=== PATIENT | female | born 1945 | race Caucasian/White ===

== ENCOUNTER 2016-10-06 13:09 | Outpatient (CLI) | payer MEDICARE | END 2016-10-06 13:10 | disposition home or self-care (01) | DX: Z12.31 Encounter for screening mammogram for malignant neoplasm of breast (principal); Z85.3 Personal history of malignant neoplasm of breast; Z80.3 Family history of malignant neoplasm of breast ==

== ENCOUNTER 2017-01-04 15:11 | Outpatient (CLI) | payer MEDICARE ==
--- NOTE | 2017-01-05 09:51 | XRAY Report ---
RIGHT HIP AND PELVIS: 01/04/2017 CLINICAL INDICATION: Right hip pain. FINDINGS: Frontal view of the hips and pelvis and frogleg lateral view of the right hip demonstrate no evidence of fracture or dislocation. The joint spaces demonstrate mild osteoarthritic changes. No radiopaque foreign body is seen in the soft tissues. IMPRESSION: MILD OSTEOARTHRITIS. JOB #: [id number] EXT JOB #:[id number]
== END 2017-01-04 15:12 | disposition home or self-care (01) ==
LOC: DI.S 15:11
PROVIDERS: ATTEND Nurse Practitioner Family
DX: M16.11 Unilateral primary osteoarthritis, right hip (principal)

== ENCOUNTER 2017-11-13 08:27 | Outpatient (CLI) | payer MEDICARE ==
--- NOTE | 2017-11-13 10:19 | XRAY Report ---
TWO VIEW CHEST: 11/13/2017 CLINICAL INDICATION: Basilar crackles, dyspnea. FINDINGS: Frontal and lateral views of the chest demonstrate a normal cardiac silhouette. A moderate hiatal hernia is present. Calcified granulomas are incidentally noted. No focal consolidation, effusion, or pneumothorax is present. IMPRESSION: MODERATE HIATAL HERNIA. 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 NO EVIDENCE OF ACUTE CARDIOPULMONARY DISEASE. TD: 11/13/2017 10:18
--- NOTE | 2017-11-13 12:27 | MRI Report ---
EXAM: RIGHT HIP MRI WITHOUT CONTRAST EXAM DATE: 11/13/2017 09:15 AM. CLINICAL HISTORY: Right hip pain x 1 year worse with activity, night pain. COMPARISON: Radiographs 01/04/2017. TECHNIQUE: Multiplanar, multisequence T1-weighted and fluid-sensitive, small yjgqs-hi-qevc sequences of the hip and large grwtt-zl-mlrl sequences of the pelvis without contrast. Other: None. FINDINGS: Bones: No fracture or bone lesion. Bone marrow edema partially visualized in the lower lumbar facets. Right Hip: No acetabular retroversion. Minimally decreased offset at the anterolateral aspect femoral head and neck junction where there are subtle osteophytes. No effusion or loose bodies. Ligamentum t eres is intact. Diffuse deep partial thickness cartilage loss. Deep partial to full-thickness tear at the anterior lozano perior labrum. Possible subtle partial-thickness undersurface tear lateral aspect of the labrum. Other Joints: Mild to moderate degenerative disk and moderate to severe degenerative facet changes pa rtially visualized. Minimal bilateral sacroiliac degenerative change. Pubic symphysis is unremarkable. No joint effusion of the left hip. Musculature: Minimal fatty atrophy throughout the musculature. Mild bilateral gluteus minimus and med ius tendinopathy with trace fluid in bilateral greater trochanteric bursae, right greater than left. Sequelae of mild bilateral hamstring tendinopathy, chronic. The ischiofemoral space is normal. Pelvic Cavity: Sigmoid diverticula. No lymphadenopathy. No free fluid in the pelvis. Other: The visualized sciatic nerves are unremarkable. Minimal subcutaneous edema over the posterior aspect of the sacrum, nonspecific. IMPRESSION: 1. Minimal degenerative change right hip with deep partial to full-thickness tear at the anterior sup erior labrum and possible partial-thickness undersurface tear of the lateral aspect of the labrum. 2. Mild bilateral gluteus minimus and medius tendinopathy with trace greater trochanteric bursitis, r ight greater than left. 3. Sequelae of mild hamstring tendinopathy. 4. Minimal bilateral sacroiliac degenerative change. 5. Degenerative changes partially visualized in the lower lumbar spine. [facility] MUSCULOSKELETAL RADIOLOGY SECTION Referring Provider Line: [phone] SITE ID: [id number]
== END 2017-11-13 08:28 | disposition home or self-care (01) ==
LOC: DI 08:27
PROVIDERS: ATTEND Registered Nurse
DX: R09.89 Other specified symptoms and signs involving the circulatory and respiratory systems (principal); R06.00 Dyspnea, unspecified; K44.9 Diaphragmatic hernia without obstruction or gangrene; M16.11 Unilateral primary osteoarthritis, right hip; S73.191A Other sprain of right hip, initial encounter; M70.62 Trochanteric bursitis, left hip; M70.61 Trochanteric bursitis, right hip; M47.898 Other spondylosis, sacral and sacrococcygeal region; M47.896 Other spondylosis, lumbar region; M51.36 Other intervertebral disc degeneration, lumbar region; M67.853 Other specified disorders of tendon, right hip; M67.852 Other specified disorders of synovium, left hip
CPT/HCPCS: 71046

== ENCOUNTER 2017-11-13 08:29 | Outpatient (CLI) | payer MEDICARE ==
--- NOTE | 2017-11-14 18:13 | Mammography Report ---
DIGITAL SCREENING MAMMOGRAM: 11/13/2017 CLINICAL INDICATION: A 72-year-old with a personal history of left breast cancer, status post lumpectomy and chemoradiation, family history of breast cancer, nulliparous patient for screening. COMPARISON: 09/2016, 08/2015, 01/2014, 01/2013, 10/2010. TECHNIQUE: Routine CC and MLO projections were obtained of the breasts. FINDINGS: The breasts again demonstrate scattered fibroglandular densities bilaterally. Coarse, typically benign calcifications are present. Postoperative and posttreatment changes in the left breast are stable. No suspicious masses, clustered microcalcifications, or regions of architectural distortion are identified. IMPRESSION: BENIGN FINDINGS. RECOMMENDATION: Routine annual screening unless otherwise clinically indicated. BIRADS category 2 benign findings. STANDARD QUALIFYING STATEMENTS 1. This examination was reviewed with the aid of Computed-Aided Detection (CAD). 2. A negative or benign imaging report should not delay biopsy if clinically suspicious findings are present. Consider surgical consultation if warranted. More than 5% of cancers are not identified by imaging. 3. Dense breasts may obscure an underlying neoplasm. TD: 11/14/2017 18:12
== END 2017-11-13 08:30 | disposition home or self-care (01) ==
LOC: DI 08:29
PROVIDERS: ATTEND Registered Nurse
DX: Z12.31 Encounter for screening mammogram for malignant neoplasm of breast (principal); Z85.3 Personal history of malignant neoplasm of breast; Z80.3 Family history of malignant neoplasm of breast
CPT/HCPCS: 77067

== ENCOUNTER 2017-12-21 10:24 | Outpatient (CLI) | payer MEDICARE ==
[2017-12-21] MEDS ORDERED: REGADENOSON 0.4 MG/5 ML SYRINGE IVP ONE (10:59)
--- NOTE | 2017-12-21 16:34 | Nuclear Medicine Report ---
EXAM: SINGLE-ISOTOPE EXERCISE STRESS TEST. SINGLE-ISOTOPE AND ONE-DAY REST/STRESS MYOCARDIAL PERFUSION SCAN S WITH TOMOGRAPHIC IMAGING, QUANTITATIVE ANALYSIS, WALL MOTION ANALYSIS AND CALCULATION OF EJECTION F RACTION. EXAM DATE: 12/21/2017. CLINICAL HISTORY: Dyspnea with exertion COMPARISON: None available. TECHNIQUE: A rest myocardial perfusion scan was done with tomography after the intravenous administration of 9.5 mCi Tc-99m sestamibi. After an appropriate delay, a treadmill exercise stress was performed according to department jaretho l. The patient exercised for 5 minutes and 10 seconds. The maximum heart rate was 132 bpm, which was 89% of the maximum predicted heart rate of 148 bpm. At approximately peak heart rate, 38.7 mCi of Tc- 99m sestamibi was injected for stress myocardial perfusion scan. Motion correction was applied when a ppropriate. Gated tomographic images were obtained for wall motion analysis and computation of left ventricular e jection fraction. FINDINGS: There is a small, fixed defect in the anterior apex. No convincing reversible perfusion def ects are evident. Wall motion analysis demonstrates no focal wall motion abnormality The left ventricular end-diastolic volume is 50 cc. The left ventricular end-systolic volume is 4 cc. The left ventricular ejection fraction is calculated to be 91%. IMPRESSION: 1. Small fixed perfusion defect in the anterior apex versus apical thinning. No convincing reversible perfusion defects. 2. Normal left ventricular ejection fraction of >65%. 3. Normal segmental and global wall motion. 4. Normal left ventricular cavity size, no change with stress. [facility] Referring Provider Line: [phone] SITE ID: [id number]
[2017-12-21 17:04] VITALS: BP 116/80
--- NOTE | 2017-12-22 13:50 | CARDIAC PROCEDURE NOTE ---
DATE OF SERVICE: 12/21/2017 Physician: MANGO Herman PRIMARY CARE PROVIDER: MANGO De Jesus. PROCEDURE: Myocardial perfusion treadmill. PROCEDURE SYMPTOMS: Dyspnea on exertion. CARDIAC RISK FACTORS INCLUDE: Age and family history. PREVIOUS CARDIAC PROCEDURES: None. CURRENT SYMPTOMATOLOGY: None. CLINICAL HISTORY: A 72-year-old female without known coronary artery disease. INITIAL RESTING VITAL SIGNS: BP 116/80, heart rate 85, height 64 inches, weight 210 pounds, BMI 35.49. PROCEDURE AND FINDINGS: Patient identity and date verified, consent signed. The patient performed treadmill exercise using a Jan protocol, completing 5 minutes 10 seconds, and completing an estimated workload of 7.05 metabolic equivalents. At peak exercise, Cardiolite radioactive tracer was injected intravenously, and the patient exercised a full 1 minute before stopping. Maximal blood pressure was 124/70 with a heart rate of 132 beats per minute or 89% of maximum predicted heart rate for age. The blood pressure response to exercise was somewhat flat. The patient stopped because of breathlessness. At peak exercise, the resting ECG demonstrated normal sinus rhythm with no abnormalities. Maximal ST-segment depression was less than 0.5 mm and upsloping. There was no ectopy. FINAL IMPRESSION 1. Good quality test. 2. Achieved predicted exercise time of (minutes) 4'30"-5'40". 3. Negative stress electrocardiogram for ischemia by electrocardiographic criteria. 4. Negative stress test clinically for angina. 5. No ectopy nor arrhythmia. TD: 12/21/2017 18:02 [facility]
== END 2017-12-21 10:25 | disposition home or self-care (01) ==
LOC: DI 10:24
PROVIDERS: ATTEND Registered Nurse
DX: R06.00 Dyspnea, unspecified (principal); G47.30 Sleep apnea, unspecified
CPT/HCPCS: 78452; 93017; A9500; 93016; 93018

== ENCOUNTER 2019-02-21 12:52 | Outpatient (CLI) | payer MEDICARE ==
--- NOTE | 2019-02-22 10:28 | Mammography Report ---
Reason: ENCOUNTER FOR SCREENING MAMMOGRAM FOR MALIGNANT NE Procedure Date: 02/21/2019 Accession Number: [id number] / [id number] Procedure: BG - Screening Mammo w/Seamus CPT Code: FULL RESULT: EXAM: Screening Mammo w/Seamus DATE: 02/21/2019 2:02 PM CLINICAL HISTORY: Screening encounter. History of nulliparity. Personal history of breast cancer status post left breast lumpectomy in 1993. Family history of breast cancer in the mother at the age of 91. TECHNIQUE: (B) - Bilateral CC and MLO views were obtained. A right laterally exaggerated CC views obtained. COMPARISON: 11/13/2017 through 01/29/2013. PARENCHYMAL PATTERN: (A) - The breast(s) demonstrate(s) scattered fibroglandular densities. FINDINGS: Posttreatment changes in the left breast are stable. There are coarse typically benign calcifications. There are no suspicious masses, calcifications, or areas of distortion. IMPRESSION: Benign findings. BI-RADS category 2. RECOMMENDATION: (ANNUAL) - Recommend routine annual screening mammography. BI-RADS CATEGORY: (2) - Benign Findings. STANDARD QUALIFYING STATEMENTS: 1. This examination was not reviewed with the aid of Computer-Aided Detection (CAD). 2. A negative or benign imaging report should not preclude biopsy if clinically suspicious findings are present. 3. Dense breasts may obscure an underlying neoplasm. 4. This examination was reviewed with the aid of 3D breast imaging (tomosynthesis).
== END 2019-02-21 12:53 | disposition home or self-care (01) ==
LOC: DI 12:52
PROVIDERS: ATTEND Registered Nurse
DX: Z12.31 Encounter for screening mammogram for malignant neoplasm of breast (principal); Z80.3 Family history of malignant neoplasm of breast; Z85.3 Personal history of malignant neoplasm of breast
CPT/HCPCS: 77063; 77067

== ENCOUNTER 2019-02-21 12:55 | Outpatient (CLI) | payer MEDICARE ==
--- NOTE | 2019-02-21 15:05 | XRAY Report ---
Reason: OSTEOARTHRITIS OF KNEE,BILATERAL,PAIN IN BOTH FEET Procedure Date: 02/21/2019 Accession Number: [id number] / [id number] Procedure: XR - Foot 3 View BILAT CPT Code: FULL RESULT: EXAMS: 1. RIGHT FOOT RADIOGRAPHY 2. LEFT FOOT RADIOGRAPHY EXAM DATE: 02/21/2019 02:21 PM. CLINICAL HISTORY: Osteoarthritis of knee, bilateral, pain in both feet. COMPARISON: None. TECHNIQUE: 3 views each foot. FINDINGS: Right: Bones: Mild inferior calcaneal spurring. The bones are qualitatively osteopenic; this limits evaluation for underlying fractures or masses. No fracture is seen. Joints: Mild degenerative changes are seen in the first metatarsophalangeal articulation. No subluxation. Soft Tissues: Normal. No soft tissue swelling. Left: Bones: The bones are qualitatively osteopenic; this limits evaluation for underlying fractures or masses. Mild to moderate inferior calcaneal spurring. No fracture is detected. Joints: Moderate degenerative changes are seen at the first metatarsophalangeal articulation with subchondral cyst formation. No subluxation. Soft Tissues: Normal. No soft tissue swelling. IMPRESSION: Osteopenia and degenerative changes as described. [facility]
--- NOTE | 2019-02-21 15:10 | XRAY Report ---
Reason: OSTEOARTHRITIS OF KNEE,BILATERAL,PAIN IN BOTH FEET Procedure Date: 02/21/2019 Accession Number: [id number] / [id number] Procedure: XR - Knee 3 View BILAT CPT Code: FULL RESULT: EXAMS: 1. RIGHT KNEE RADIOGRAPHY 2. LEFT KNEE RADIOGRAPHY EXAM DATE:02/21/2019 02:21 PM. CLINICAL HISTORY:Osteoarthritis of knee, bilateral pain in both feet. COMPARISON: None. TECHNIQUE: 3 views each. FINDINGS: Right Knee: Bones: Normal. No fractures or bone lesions. Joints: Mild narrowing of the medial weightbearing compartment. No joint effusion or subluxation detected. Soft Tissues: Normal. No soft tissue swelling. Left Knee: Bones: Normal. No fractures or bone lesions. Joints: Mild narrowing of the medial weightbearing compartment as well as degenerative changes along the medial patellar facet and a minimal joint effusion. No subluxation. Soft Tissues: Normal. No soft tissue swelling. IMPRESSION: Degenerative changes left greater than right as described. [facility]
--- NOTE | 2019-02-22 09:09 | DEXA Report ---
Reason: DISORDER OF BONE,UNSPECIFIED Procedure Date: 02/21/2019 Accession Number: [id number] / [id number] Procedure: DEX - Dexa Spine and/or Hip CPT Code: FULL RESULT: EXAM: Dexa Spine and/or Hip DATE: 02/21/2019 2:04 PM CLINICAL HISTORY: DISORDER OF BONE,UNSPECIFIED TECHNIQUE: Dual energy x-ray absorptiometry (DXA) was performed on a [employer] System. Regions measured are the AP Spine, femoral neck, and if needed forearm. COMPARISON: None. In accordance with the International Society for Clinical Densitometry (ISCD) guidelines, data from previous exams may be reanalyzed using current recommendations and techniques. This is done to allow a more accurate basis for comparison with the current study. FINDINGS: The data for the lumbar spine is as follows: BMD (g/cm/cm) T-SCORE Z-SCORE REGION L1 0.632 -4.2 -3.4 L2 0.970 -1.9 -1.2 L3 0.927 -2.3 -1.5 L4 0.987 -1.8 -1.0 TOTAL 0.873 -2.6 -1.8 NOTE: All evaluable vertebrae are used for classification The data for the hip is as follows: BMD (g/cm/cm) T-SCORE Z-SCORE REGION Neck 0.707 -2.4 -1.2 TOTAL 0.762 -2.0 -1.0 NOTE: The femoral neck or total proximal femur, whichever is lowest, is used for classification. DXA RESULTS SUMMARY: Spine SCAN DATE AGE BMD CHANGE VS CHANGE VS PREVIOUS PREVIOUS % 2/21/2019 [age] 0.873 -0.062* -6.6* 02[age]17/2016 [age] 0[age]935 * Denotes significant change at the 95% confidence level. Denotes dissimilar scan types or analysis methods. DXA RESULTS SUMMARY: Hip SCAN DATE AGE BMD CHANGE VS CHANGE VS PREVIOUS PREVIOUS % 2/21/2019 [age] 0.762 0.018 2.4 02[birth year]17/2016 [age] 0.744 * Denotes significant change at the 95% confidence level. Denotes dissimilar scan types or analysis methods. IMPRESSION: THE WHO CLASSIFICATION BASED ON THE INTERNATIONAL REFERENCE STANDARD IS OSTEOPOROSIS. THE FRACTURE RISK IS HIGH. RECOMMENDATION: Patients with diagnosis of osteoporosis or osteopenia should have regular bone mineral density assessment. For those eligible for Medicare, routine testing is allowed once every 2 years. Testing frequency can be increased for patients who have rapidly progressing disease or for those who are receiving medical therapy to restore bone mass. COMMENT: World Health Organization (WHO) definitions for osteoporosis and osteopenia: NORMAL BMD: T-score at -1.0 or higher, fracture risk is low OSTEOPENIA BMD: T-score between -1.0 and -2.5, fracture risk is increased. OSTEOPOROSIS BMD: T-score at -2.5 or lower, fracture risk is high. National Osteoporosis Foundation recommends: 1. Obtain adequate dietary calcium (at least 1200 mg per day) and vitamin D (400-800 international units per day). 2. Participate, as appropriate, in regular weightbearing and muscle-strengthening exercise. 3. Avoid tobacco use and reduce alcohol and caffeine intake. 4. For more detailed information see the website at www.NOF.org.
== END 2019-02-21 12:56 | disposition home or self-care (01) ==
LOC: DI 12:55
PROVIDERS: ATTEND Registered Nurse
DX: M81.0 Age-related osteoporosis without current pathological fracture (principal); M17.0 Bilateral primary osteoarthritis of knee; M79.671 Pain in right foot; M79.672 Pain in left foot
CPT/HCPCS: 77080

== ENCOUNTER 2019-09-02 11:59 | Outpatient (CLI) | payer MEDICARE ==
--- NOTE | 2019-09-02 17:48 | MRI Report ---
Reason: OSTEOARTHRITIS OF KNEE Procedure Date: 09/02/2019 Accession Number: [id number] / [id number] Procedure: MRI - Knee LT W/O CPT Code: Final Report FULL RESULT: EXAM: LEFT KNEE MRI WITHOUT CONTRAST EXAM DATE: 09/02/2019 01:48 PM. CLINICAL HISTORY: Osteoarthritis of knee. COMPARISON: None. TECHNIQUE: Multiplanar, multisequence T1-weighted and fluid-sensitive sequences of the knee without contrast. Other: None. FINDINGS: Bones: Significant subjacent marrow edema at the patella. Some marrow edema also seen at the medial trochlear groove. 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 Medial Meniscus: The medial meniscus is intact. Lateral Meniscus: The lateral meniscus is intact. Cruciate Ligaments: The anterior and posterior cruciate ligaments are intact. Collateral Ligaments: The medial collateral and lateral collateral ligamentous structures are intact. Tendons: The quadriceps, patellar, semimembranosus, and popliteus tendons are unremarkable. Musculature: No edema or fatty atrophy. Other: Small joint effusion.No popliteal cyst.No loose bodies.The medial and lateral retinacula are intact.Subcutaneous edema and swelling is seen anteriorly. IMPRESSION: 1. 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 2. Menisci, cruciates and collaterals are unremarkable. 3. Small joint effusion. Subcutaneous edema and swelling is present anteriorly. [facility]
== END 2019-09-02 12:00 | disposition home or self-care (01) ==
LOC: DI 11:59
PROVIDERS: ATTEND Registered Nurse
DX: M94.262 Chondromalacia, left knee (principal); M25.462 Effusion, left knee; R60.0 Localized edema

== ENCOUNTER 2020-04-20 09:39 | Outpatient (CLI) | payer MEDICARE ==
--- NOTE | 2020-04-21 09:26 | Mammography Report ---
BILATERAL DIGITAL SCREENING MAMMOGRAM 3D/2D: 04/20/2020 CLINICAL: Routine screening. Personal history of left breast cancer. Comparison is made to exams dated: 11/13/2017 mammogram, 02/21/2019 mammogram, 10/06/2016 mammogram, 08/28 mammogram, 01/29/2014 mammogram, and 01/29/2013 mammogram - [facility]. There a re scattered fibroglandular elements in both breasts. There are benign calcifications in both breasts. There also are benign post operative findings in th e left breast. No significant masses, calcifications, or other findings are seen in either breast. There has been no significant interval change. IMPRESSION: BENIGN There is no mammographic evidence of malignancy. A 1 year screening mammogram is recommended. This exam was interpreted at Station ID: [id number]. NOTE: For mammograms, a report in lay terms will be sent to the patient. Approximately 15% of breast malignancies will not be visualized mammographically. In the management of a palpable breast mass, a negative mammogram must not discourage biopsy of a clinically suspicious lesion. Electronically Signed By: Luiz Pandya M.D. atcesar/henryrad:04/21/2020 07:55:53 ACR BI-RADS Category 2: Benign Finding(s) 3342F PARENCHYMAL PATTERN: (A) - The breast(s) demonstrate(s) scattered fibroglandular densities. BI-RADS CATEGORY: (2) - 2 RECOMMENDATION: (ANNUAL) - Recommend routine annual screening mammography. [id number] 1 year screening LATERALITY: (B)
== END 2020-04-20 09:40 | disposition home or self-care (01) ==
LOC: DI 09:39
PROVIDERS: ATTEND Registered Nurse
DX: Z12.31 Encounter for screening mammogram for malignant neoplasm of breast (principal); Z85.3 Personal history of malignant neoplasm of breast
CPT/HCPCS: 77063; 77067

== ENCOUNTER 2020-08-07 10:25 | Outpatient (CLI) | payer MEDICARE ==
--- NOTE | 2020-08-07 12:53 | XRAY Report ---
PROCEDURE: Lumbar Spine 2 View INDICATIONS: LOW BACK STRAIN TECHNIQUE: 2 views of the lumbar spine were acquired. COMPARISON: None. FINDINGS: Bones: 5 kwv-dfu-ggjtsqt vertebrae are present. Trace anterolisthesis L5 on S1 with mild disc height loss. Moderate disc height loss at the L3-4 level. Mild endplate osteophytes at multiple levels. Fa cet arthropathy at L4-5 and L5-S1. No vertebral body compression fractures. No suspicious bony lesio ns. Decreased mineralization. Soft tissues: Overlying bowel gas pattern is normal. No suspicious soft tissue calcifications. IMPRESSION: Mild multilevel degenerative changes as described. Reviewed by: Cary Martínez MD on 08/07/2020 12:52 PM PST Approved by: Cary Martínez MD on 08/07/2020 12:52 PM PST Station ID: [id number]
== END 2020-08-07 10:26 | disposition home or self-care (01) ==
LOC: DI.S 10:25
PROVIDERS: ATTEND Registered Nurse
DX: S39.012A Strain of muscle, fascia and tendon of lower back, initial encounter (principal); M81.0 Age-related osteoporosis without current pathological fracture; M47.816 Spondylosis without myelopathy or radiculopathy, lumbar region

== ENCOUNTER 2020-12-01 09:11 | Outpatient (CLI) | payer MEDICARE ==
--- NOTE | 2020-12-02 09:54 | Mammography Report ---
UNILATERAL LEFT DIGITAL DIAGNOSTIC MAMMOGRAM 3D/2D: 12/01/2020 CLINICAL: Palpable left breast lump by physician. Comparison is made to exams dated: 04/20/2020 mammogram, 02/21/2019 mammogram, 11/13/2017 mammogram, 10/06/2016 mammogram, and 09/15/2015 mammogram - [facility]. There are scattered fibrog landular elements in left breast. There are benign segmental coarse heterogeneous punctate calcifications in the left breast at 7 o'lazaro ck anterior depth. There also is an irregular equal density architectural distortion with an indistinct margin and group ed dystrophic calcifications in the left breast at 1 o'clock posterior depth. This is not significan tly changed and correlates with surgery. There is a post-surgical scar and trabecular thickening ass ociated with the architectural distortion. No other significant masses or calcifications are seen in the breast. IMPRESSION: INCOMPLETE: NEEDS ADDITIONAL IMAGING EVALUATION The irregular equal density architectural distortion in the left breast at 1 o'clock posterior depth is consistent with a post-surgical scar and is benign. There is no abnormality seen in the left breast to correspond with the palpable abnormality in the up per outer quadrant, however, ultrasound is recommended. Ultrasound will be performed immediately following the current exam. This exam was interpreted at Station ID: [id number]. NOTE: For mammograms, a report in lay terms will be sent to the patient. Approximately 15% of breast malignancies will not be visualized mammographically. In the management of a palpable breast mass, a negative mammogram must not discourage biopsy of a clinically suspicious lesion. Electronically Signed By: Ankur Marie M.D. ddp/:12/01/2020 10:15:47 ACR BI-RADS Category 0: Incomplete 3340F PARENCHYMAL PATTERN: (A) - The breast(s) demonstrate(s) scattered fibroglandular densities. BI-RADS CATEGORY: (0) - 0 Ultrasound [id number] Immediate follow-up LATERALITY: (B)
--- NOTE | 2020-12-02 09:54 | Ultrasound Report ---
LIMITED ULTRASOUND OF LEFT BREAST: 12/01/2020 CLINICAL: Palpable left breast lump by physician. Comparison is made to exams dated: 12/01/2020 mammogram, 04/20/2020 mammogram, 02/21/2019 mammogram, 10/26 mammogram, 10/06/2016 mammogram, and 09/15/2015 mammogram - [facility]. Real-time ultrasound of the left breast 1 o'clock region was performed on the area of interest. No discrete cystic or solid mass lesion identified in the area of palpable abnormality. IMPRESSION: NEGATIVE There is no sonographic evidence of malignancy. There is no abnormality seen in the left breast to correspond with the palpable abnormality at 1 o'cl ock, however, clinical followup is recommended. Future imaging is recommended as follows: 04/21/2021 screening mammogram. This exam was interpreted at Station ID: [id number]. Electronically Signed By: Ankur Marie M.D. ddp/:12/01/2020 10:30:51 Ultrasound BI-RADS: 1 Negative BI-RADS CATEGORY: (1) - 1 Mammogram [id number] return to screening LATERALITY: (B)
== END 2020-12-01 09:12 | disposition home or self-care (01) ==
LOC: DI 09:11
PROVIDERS: ATTEND Registered Nurse
DX: N63.21 Unspecified lump in the left breast, upper outer quadrant (principal)

== ENCOUNTER 2021-02-17 09:37 | Outpatient (CLI) | payer MEDICARE ==
--- NOTE | 2021-02-18 14:22 | Ultrasound Report ---
LIMITED ULTRASOUND OF LEFT BREAST: 02/17/2021 CLINICAL: Patient returns today to evaluate a focal asymmetry in the left breast. Palpable left breas t lump by physician. Comparison is made to exams dated: 02/17/2021 mammogram - [facility], 01/27/[address] MRI, 01/20/2021 mammogram - [facility], 12/01/2020 ultrasound, 12/01/2020 mammogram, and 04/20/2020 mammogram - [facility]. Real-time ultrasound of the left breast 2-4 o'clock, and retroareolar regions was performed. Leyva s marcelina images of the real-time examination were reviewed. No significant abnormalities were seen sonographically in the left breast. Specifically, no abnormal ities correlating with resolved focal asymmetry in the lateral left breast. Additionally, no retroare olar abnormalities to correlate with suspicious linear enhancement seen on recent MRI. This area of e nhancement correlates with same segment of the left breast as the stable calcifications seen mammogra phically. Retrospective review of the MRI showed likely intrinsically T1 hyperintensity along the anne-marie e region of the subareaolar left breast prior to administration of contrast which may be related to p roteinaceous versus hemorrhagic components within a non dilated duct. There is no ductal dilation or ectasia in the left breast. IMPRESSION: PROBABLY BENIGN There is no abnormality seen in the left breast to correspond with the mammography finding and breast MRI finding. The suspicious short segment of linear enhancement seen in the left breast correlates with subareolar left breast anterior to segmental calcifications seen on multiple comparison mammogra ms. This is a probably benign finding. A follow-up breast MRI in 6 months is recommended to demonstrate stability. Findings and recommendations were conveyed to the patient during today's evaluation. This exam was interpreted at Station ID: [id number]. Electronically Signed By: Luiz Pandya M.D. aty/:02/17/2021 11:47:01 copy to: LENNY MCNAMARA Ultrasound BI-RADS: 3 Probably benign BI-RADS CATEGORY: (3) - 3 MRI [id number] 6 month follow-up LATERALITY: (B)
--- NOTE | 2021-02-18 14:22 | Mammography Report ---
UNILATERAL LEFT DIGITAL DIAGNOSTIC MAMMOGRAM 3D/2D: 02/17/2021 CLINICAL: Patient returns today to evaluate a focal asymmetry in the left breast. Comparison is made to exams dated: 01/20/2021 mammogram - [facility], 12/01/2020 ultrasound, 021 mammogram, 04/20/2020 mammogram, 02/21/2019 mammogram, and 11/13/2017 mammogram - [facility]. There are scattered fibroglandular elements in left breast. The previously described possible developing asymmetry in the left breast at 12 o'clock middle depth is no longer seen and most likely is fibroglandular tissue as this was not seen in today's additional views and there were no correlate seen on comparison MRI dated 01/27/2021. No mammographic abnormalities identified in the retroareolar region of the inner left breast to corre late with linear enhancement seen on comparison MRI. There are stable coarse segmental left breast ca lcifications in this area. No other significant masses or calcifications are seen in the breast. IMPRESSION: INCOMPLETE: NEEDS ADDITIONAL IMAGING EVALUATION There is no abnormality seen in the left breast to correspond with the breast MRI finding in the sub- areolar depth as well as the lateral aspect of the left breast of now resolved asymmetry. However, f urther evaluation with left breast ultrasound is recommended and will immediately follow this exam. This exam was interpreted at Station ID: [id number]. NOTE: For mammograms, a report in lay terms will be sent to the patient. Approximately 15% of breast malignancies will not be visualized mammographically. In the management of a palpable breast mass, a negative mammogram must not discourage biopsy of a clinically suspicious lesion. Electronically Signed By: Luiz Pandya M.D. aty/:02/17/2021 11:14:33 copy to: LENNY MCNAMARA ACR BI-RADS Category 0: Incomplete 3340F PARENCHYMAL PATTERN: (A) - The breast(s) demonstrate(s) scattered fibroglandular densities. BI-RADS CATEGORY: (0) - 0 Ultrasound [id number] Immediate follow-up LATERALITY: (L)
== END 2021-02-17 09:38 | disposition home or self-care (01) ==
LOC: DI 09:37
PROVIDERS: ATTEND Surgery
DX: R92.8 Other abnormal and inconclusive findings on diagnostic imaging of breast (principal)

== ENCOUNTER 2021-10-08 08:00 | Outpatient (CLI) | payer MEDICARE ==
--- NOTE | 2021-10-08 14:02 | XRAY Report ---
PROCEDURE: Knee 2 View LT INDICATIONS: LEFT KNEE PAIN TECHNIQUE: 2 views of the left knee(s) were acquired. COMPARISON: None. FINDINGS: Bones: No fractures or dislocations. No suspicious bony lesions. Mild tricompartment periareolar a rticular osteophyte formation. Soft tissues: No joint effusion. No suspicious soft tissue calcifications. IMPRESSION: Osteoarthritis. No acute fracture. No osseous lesion. If symptoms and/or clinical suspic ion for pathology continue, further assessment with repeat plain films, or advanced imaging (e.g., CT , MRI, or bone scan) is recommended for further assessment. Reviewed by: Luzmaria Cotter MD on 10/08/2021 2:00 PM PST Approved by: Luzmaria Cotter MD on 10/08/2021 2:00 PM PST Station ID: [id number]
== END 2021-10-08 23:59 | disposition home or self-care (01) ==
LOC: DI.S 08:00
PROVIDERS: ATTEND Registered Nurse
DX: M17.12 Unilateral primary osteoarthritis, left knee (principal)

== ENCOUNTER 2021-11-11 09:41 | Day surgery (SDC) | payer MEDICARE ==
--- NOTE | 2021-11-11 09:21 | OPERATIVE REPORT ---
Operative Report - Other Other Information/Narrative: Date of Surgery: 11/11/21 Preop Dx: Visually significant cataract right eye. Cataract surgery was performed in the left eye on . Postop Dx: Same Procedure: Phacoemulsification with posterior chamber intraocular lens implant right eye Surgeon: Dr. Casey Pearson Anesthesia: Monitored anesthesia care Complications: None Operative Indications: This is a 76-year-old F with progressive vision loss in the right eye due to 2+ nuclear sclerotic, 1+ cortical, and 2+ posterior subcapsular cataract. Best corrected visual acuity was 20/100 vision in the right eye. Indications for surgery were: - Overall decrease in vision - Difficulty seeing words on a computer screen - Difficulty reading - Difficulty seeing words, closed captions, or game scores on TV - Difficulty seeing street signs - Difficulty with glare or bright lights in any situation - Difficulty tracking a golf ball The patient was consented at length concerning the risks and benefits of cataract surgery after which the patient expressed a desire to proceed with surgery. Operative Procedure: The patient was taken into OR#3 and placed under monitored anesthesia care. A surgical time-out was conducted confirming correct patient, correct procedure, and correct surgical site. The patient was given topical anesthesia and then prepped and draped in the usual sterile fashion. The eye was entered at the 6 and 3 oclock positions. Intracameral Shugarcaine was injected into the anterior chamber followed by a dispersive viscoelastic. A continuous-tear curvilinear capsulorhexis was performed. The nucleus was hydrodissected and phacoemulsified. The cortex was evacuated using automated infusion and aspiration. A cohesive viscoelastic was injected into the capsular bag and a 19.5 diopter intraocular lens was inserted into the bag. Infusion and aspiration were used to evacuate the viscoelastic materials from the eye. The wounds were hydrated and the eye inflated to physiologic pressure using balanced salt solution. Approximately 0.25ml of a mixture of triamcinolone and moxifloxacin was injected trans-sclerally into the vitreous in the inferotemporal quadrant using a 30 gauge cannula. An additional 0.55ml of a mixture of triamcinolone, moxifloxacin, and vancomycin was injected sub conjunctivally in the superior quadrant for infection and inflammation prophylaxis. Wound integrity was checked with Weck-Lana sponges. The patient was taken from the operating room in good condition and given post-op instructions.
[~2021-11-11 09:41] MED LIST: BRIMONIDINE 0.2% OPHTH DROPS 5 ML ONE; BSS/LIDOCAINE/EPINEPHRINE 1 ML VIAL ONE; CYCLOPENTOLATE 1% OPHTH DROPS 2 ML ONE; EPINEPHrine 1 MG/ML AMP ONE; KETOROLAC 0.45% OPHTH DROPS ONE; PHENYLEPHRINE 2.5% OPHTH 2 ML DROPS ONE; PROPARACAINE 0.5% OPHTH DROPS 15 ML ONE; TIMOLOL 0.5% OPHTH DROPS ONE; TRIAMCIN/MOXIFLOX OPHTHALMIC 0.6 ML VIAL IO ONE
[2021-11-11] MEDS ORDERED: MIDAZOLAM 2 MG/2 ML VIAL ONE (10:05)
[2021-11-11] MEDS ORDERED: LACTATED RINGERS 1,000 ML IV ONE ×2 (10:07→10:53)
--- NOTE | 2021-11-11 10:17 | ANESTHESIA ---
Pre-Anesthesia VS, & Labs - Diagnosis left senile combined cataract - Procedure left cataract extraction with IOL Vital Signs: Temp Pulse Resp BP Pulse Ox 36.3 C L 62 19 138/78 H 97 11/11/21 09:59 11/11/21 09:59 11/11/21 09:59 11/11/21 09:59 11/11/21 09:59 Height: 5 ft 5 in Weight (kg): 86.4 kg Body Mass Index: 31.6 BMI Classification: Obese - NPO >8 hours - Is Patient ?: No Home Medications and Allergies Home Medications: Ambulatory Orders metFORMIN [Glucophage] 500 mg PO BID 11/10/21 Citalopram [CeleXA] 5 mg PO DAILY 03/04/13 Calcium Carbonate/Vitamin D3 [Calcium 600 + Vit D Caplet] 1 tab PO DAILY 05/26/14 Multivitamin [Multivitamins] 1 each PO DAILY 05/26/14 Omeprazole 20 mg PO DAILY 05/26/14 metFORMIN [Glucophage] 500 mg PO BID 11/10/21 Allergies/Adverse Reactions: Allergies Allergy/AdvReac Type Severity Reaction Status Date / Time droperidol [From Inapsine] AdvReac Intermediate Respiratory Verified 05/26/14 11:36 prochlorperazine edisylate * AdvReac Intermediate Respiratory Verified 05/26/14 11:36 [From Compazine] prochlorperazine maleate * AdvReac Intermediate Respiratory Verified 05/26/14 11:36 [From Compazine] Anes History & Medical History - Anesthetic History Anesthesia Complications: reports: No previous complications - Medical History Cardiovascular: reports: None Pulmonary: reports: Sleep apnea Gastrointestinal: reports: GERD, Colon polyps Urinary: reports: None Musculoskeletal: reports: Osteoarthritis Endocrine/Autoimmune: reports: None Skin: reports: None Smoking Status: Never smoker History of Cancer?: Yes - Surgical History General: reports: Colonoscopy Gynecologic: reports: Other Exam General: Alert, Oriented x3 Dental: WNL Mouth Opening: Greater than 4 Fingerbreadths Neck Mobility: Normal Mallampati classification: II Respiratory: Lungs clear Cardiovascular: Regular rate Plan Anesthesia Type: MAC Consent for Procedure(s) Verified and Reviewed: Yes Code Status: Attempt Resuscitation ASA classification: 2-Mild systemic disease Is this case an emergency?: No
[2021-11-11] MEDS ORDERED: TIMOLOL 0.5% OPHTH DROPS OPTH ONE (10:34)
[2021-11-11] MEDS ORDERED: EPINEPHrine 1 MG/ML AMP IR ONE (10:34)
[2021-11-11] MEDS ORDERED: BRIMONIDINE 0.2% OPHTH DROPS 5 ML OPTH ONE (10:34)
[2021-11-11] MEDS ORDERED: BSS/LIDOCAINE/EPINEPHRINE 1 ML SYRINGE IO ONE (10:35)
[2021-11-11] MEDS ORDERED: TRIAMCIN/MOXIFLOX OPHTHALMIC 0.6 ML VIAL IO ONE (10:35)
[2021-11-11] MEDS ORDERED: PROPARACAINE 0.5% OPHTH DROPS 15 ML EACHEYE ONE (10:36)
[2021-11-11] MEDS ORDERED: VANCOMYCIN OPHTHALMI 8MG/0.8ML 8 MG/0.8 ML SYRINGE IO ONE (10:36)
--- NOTE | 2021-11-11 10:59 | OPERATIVE REPORT ---
Operative Report - Other Other Information/Narrative: Date of Surgery: 11/11/21 Preop Dx: Visually significant cataract left eye. This was the first cataract surgery. Postop Dx: Same Procedure: Phacoemulsification with posterior chamber toric intraocular lens implant left eye Surgeon: Dr. Casey Pearson Anesthesia: Monitored anesthesia care Complications: None Operative Indications: This is a 76-year-old F with progressive vision loss in the left eye due to 1-2+ nuclear sclerotic, 2-3+ cortical, and 1+ posterior s ubcapsular cataract. Best corrected visual acuity was 20/30 with glare to 20/100 vision in the left eye. Indications for surgery were: - Overall decrease in vision - Difficulty reading - Difficulty driving at night because of headlights from other vehicles - Difficulty with glare or bright lights in any situation The patient was consented at length concerning the risks and benefits of cataract surgery after which the patient expressed a desire to proceed with surgery. Operative Procedure: The patients cornea was marked in the pre-surgical area to indicate the axis for the toric intraocular lens. The patient was taken into OR#3 and placed under monitored anesthesia care. A surgical time-out was conducted confirming correct patient, correct procedure, and correct surgical site. The patient was given topical anesthesia and then prepped and draped in the usual sterile fashion. The eye was entered at the 6 and 3 oclock positions. Intracameral Shugarcaine was injected into the anterior chamber followed by a dispersive viscoelastic. A continuous-tear curvilinear capsulorhexis was performed. The nucleus was hydrodissected and phacoemulsified. The cortex was evacuated using automated infusion and aspiration. A cohesive viscoelastic was injected into the capsular bag and a 19.0 diopter toric intraocular lens was inserted into the bag and rotated to axis 102. Infusion and aspiration were used to evacuate the viscoelastic materials from the eye and the IOL was verified to remain on axis. The wounds were hydrated and the eye inflated to physiologic pressure using balanced salt solution. Approximately 0.25ml of a mixture of triamcinolone and moxifloxacin was injected trans- sclerally into the vitreous in the inferotemporal quadrant using a 30 gauge cannula. An additional 0.55ml of a mixture of triamcinolone, moxifloxacin, and vancomycin was injected subconjunctivally in the superior quadrant for infection and inflammation prophylaxis. Wound integrity was checked with Weck-Lana sponges and the IOL axis was once again verified to be on the correct axis. The patient was taken from the operating room in good condition and given post-op instructions.
[2021-11-11 11:26] VITALS: BP 123/76
--- NOTE | 2021-11-11 13:06 | ANESTHESIA POST OP EVALUATION ---
Anesthesia Post Eval - Post Anesthesia Eval Vitals: Last Vital Signs Temp 37.3 C 11/11/21 11:19 Pulse 64 11/11/21 11:19 Resp 14 11/11/21 11:19 BP 123/76 11/11/21 11:19 Pulse Ox 95 11/11/21 11:19 CV Function Including HR & BP: Stable Pain Control: Satisfactory Nausea & Vomiting: Negative Mental Status: Baseline Respiratory Status: Airway Patent Hydration Status: Satisfactory Anesthesia Complications: None
== END 2021-11-11 09:42 | disposition home or self-care (01) ==
LOC: SDS 09:41
PROVIDERS: ATTEND Ophthalmology
DX: E11.36 Type 2 diabetes mellitus with diabetic cataract (principal); H25.812 Combined forms of age-related cataract, left eye; Z79.84 Long term (current) use of oral hypoglycemic drugs; G47.33 Obstructive sleep apnea (adult) (pediatric); E66.9 Obesity, unspecified; Z68.31 Body mass index [BMI] 31.0-31.9, adult
CPT/HCPCS: 66984; A9270; J3490; J7120; V2632; V2787

== ENCOUNTER 2022-02-15 10:40 | Outpatient (CLI) | payer MEDICARE ==
--- NOTE | 2022-02-15 13:11 | DEXA Report ---
PROCEDURE: Dexa Spine and/or Hip INDICATIONS: OSTEOPOROSIS TECHNIQUE: Dual energy x-ray absorptiometry (DXA) was performed on a [employer] System. Regions measur ed are the AP Spine, femoral neck, and if needed forearm. COMPARISON: None. FINDINGS: Lumbar Spine: Bone Mineral Density 0.933 g/cm/cm,T score -2.1 Left Hip: Bone Mineral Density 0.756 g/cm/cm,T score -2.0 0.666 Femoral Neck: Bone Mineral Density 0.666 g/cm/cm, T score -2.7 (T score greater or equal to -1.0: NORMAL) (T score from -1.1 to -2.4: OSTEOPENIA) (T score less than or equal to -2.5 to: OSTEOPOROSIS) Impression: 1. Osteopenia of the lumbar spine. 2. Osteoporosis of the left femoral neck. Patients with diagnosis of osteoporosis or osteopenia should have regular bone mineral density assess ment. For those eligible for Medicare, routine testing is allowed once every 2 years. Testing frequ ency can be increased for patients who have rapidly progressing disease or for those who are receivin g medical therapy to restore bone mass. Reviewed by: Nilam Epps MD on 02/15/2022 1:09 PM PDT Approved by: Nilam Epps MD on 02/15/2022 1:09 PM PDT Station ID: [id number]
== END 2022-02-15 10:41 | disposition home or self-care (01) ==
LOC: DI 10:40
PROVIDERS: ATTEND Registered Nurse
DX: M81.0 Age-related osteoporosis without current pathological fracture (principal)

== ENCOUNTER 2022-09-20 09:48 | Outpatient (CLI) | payer MEDICARE ==
--- NOTE | 2022-09-28 15:11 | Mammography Report ---
BILATERAL DIGITAL DIAGNOSTIC MAMMOGRAM 3D/2D: 09/20/2022 CLINICAL: Short term follow up of the left breast, due for bilateral imaging. Comparison is made to exams dated: 11/15/2021 mammogram, 10/04/2021 breast MRI - [facility], 02/18/20 mammogram - [facility], 01/27/2021 breast MRI, 01/20/2021 mammogram - [facility] , and 12/01/2020 mammogram - [facility]. There are scattered areas of fibroglandular density in both breasts (category b / 25%-50% glandular t issue). There is an asymmetry in the left breast middle depth lateral region seen on the craniocaudal view on ly. This is not significantly changed and does not likely correlate with breast MRI findings. There also is an irregular equal density asymmetry in the left breast middle-posterior depth superior region seen on the mediolateral oblique view only. This is less prominent and decreased in size and possibly correlates with breast MRI finding of 7-8 mm enhancement near 11-12 o'clock middle depth. Additionally, there are segmental coarse, branching calcifications in the left breast at 9 o'clock mi ddle depth. No other significant masses, calcifications, or other findings are seen in either breast. IMPRESSION: INCOMPLETE: NEEDS ADDITIONAL IMAGING EVALUATION The asymmetry in the left breast middle depth lateral region seen on the craniocaudal view only is in determinate. An ultrasound is recommended for further evaluation and is scheduled to immediately fol low this examination. The irregular equal density asymmetry in the left breast middle-posterior depth superior region seen on the mediolateral oblique view only is indeterminate. An ultrasound is recommended for further eval uation and is scheduled to immediately follow this examination. The segmental coarse branching calcifications in the left breast at 9 o'clock middle depth are not si gnificantly changed over time and are probably benign. There is no abnormality seen in the left breast to correspond with the breast MRI finding in the sub- areolar depth. An ultrasound is recommended for further evaluation and is scheduled to immediately fo llow this examination. This exam was interpreted at Station ID: [id number]. NOTE: For mammograms, a report in lay terms will be sent to the patient. Approximately 15% of breast malignancies will not be visualized mammographically. In the management of a palpable breast mass, a negative mammogram must not discourage biopsy of a clinically suspicious lesion. Electronically Signed By: Luiz Pandya M.D. aty/:09/27/2022 12:55:40 copy to: LENNY GERARDO BI-RADS Category 0: Incomplete 3340F PARENCHYMAL PATTERN: (A) - The breast(s) demonstrate(s) scattered fibroglandular densities. BI-RADS CATEGORY: (0) - 0 Ultrasound [id number] Immediate follow-up LATERALITY: (L)
--- NOTE | 2022-09-28 15:11 | Ultrasound Report ---
LIMITED ULTRASOUND OF LEFT BREAST: 09/20/2022 CLINICAL: Patient returns today to evaluate an architectural distortions in the left breast. Comparison is made to exams dated: 09/20/2022 mammogram - [facility], 01/06/2022 ult rasound, 11/15/2021 mammogram, 10/04/2021 breast MRI - [facility], 02/17/2021 ultrasound, and mammogram - [facility]. Real-time ultrasound of the left breast upper outer quadrant and retroareolar regions was performed. Leyva scale images of the real-time examination were reviewed. There are coarse, shadowing calcifications in the left breast at 2 o'clock in the middle-posterior de pth that correlate with mammography finding of irregular asymmetry with associated calcifications. Th ere is subtle enhancement involving the anterior aspect of this asymmetry on MRI. There also are coa rse shadowing calcifications in the left breast at 9 o'clock that correlate with multiple coarse bran ciera calcifications seen on comparison mammography. No sonographic or mammographic abnormality seen in the subareolar region of the left breast to correl ate with minimal enhancement seen on MRI. No definite sonographic abnormality identified to correlate with 7-8 mm enhancing mass at the middle depth near 11-12 o'clock described on comparison MRI. IMPRESSION: INCOMPLETE: NEEDS ADDITIONAL IMAGING EVALUATION There are no definitive abnormalities identified on today's ultrasound to correlate with essentially stable mammographic findings seen on both today's and previous mammograms. Additionally, no abnormali ty seen to correlate with 7-8mm enhancing mass in the middle depth of the left breast 11-12 o'clock a xis of the left breast. Given overall stability of these findings, these are probably benign findings which continued surveil mahad is warranted. However, the patient would like to have biopsy in-lieu of continued imaging surve illance. Without a definitive abnormality to target for biopsy, an updated MRI can be considered to e valuate for persistence of previously described findings and if any appear to be progressing, MRI cintia ded biopsy may be considered given no definite target/ suspicious abnormality visualized by either ma mmography or sonography. Findings and recommendations were discussed telephonically with Dr. Mcnamara on 09/27/2022. This exam was interpreted at Station ID: [id number]. Electronically Signed By: Luiz Pandya M.D. aty/:09/27/2022 12:58:30 copy to: LENNY MCNAMARA Ultrasound BI-RADS: 0 Indeterminate BI-RADS CATEGORY: (0) - 0 MRI [id number] Immediate follow-up LATERALITY: (B)
== END 2022-09-20 09:49 | disposition home or self-care (01) ==
LOC: DI 09:48
PROVIDERS: ATTEND Surgery
DX: Z85.3 Personal history of malignant neoplasm of breast (principal); R92.8 Other abnormal and inconclusive findings on diagnostic imaging of breast

== ENCOUNTER 2022-12-21 11:39 | Outpatient (CLI) | payer MEDICARE | END 2022-12-21 11:40 | disposition home or self-care (01) | LOC: LAB.R 11:39 | PROVIDERS: ATTEND Surgery | DX: N61.1 Abscess of the breast and nipple (principal) | CPT/HCPCS: 87070; 87181; 87205 ==

== ENCOUNTER 2023-01-10 10:53 | Emergency (ER) | payer MEDICARE ==
[2023-01-10 11:06] VITALS: BP 141/72
--- NOTE | 2023-01-10 12:36 | ED Physician Documentation ---
History of Present Illness - Stated complaint Stated Complaint: SWELLING,PX,REDNESS - Chief complaint Chief Complaint: Wound - Additonal information Additional information: 77-year-old female presents emergency department for evaluation of what she believes to be an abscess is developed in the left lower quadrant of her left breast. She did undergo a needle biopsy several weeks ago at [facility]. For about 18 months she has been dealing with an inverted left nipple. Shortly after the needle biopsy she did develop an area of redness around the biopsy site for which she completed a course of antibiotics that she believes to be Bactrim. She completed that course about 2 weeks ago and suddenly yesterday she developed pain swelling and fluctuance around the biopsy site on the left lower quadrant. She did call Dr. Sow's office and was advised to come to the ER for ultrasound and further evaluation. Patient's had no fevers. She is not anticoagulated. Meds: Citalopram, omeprazole and metformin Review of Systems Constitutional: denies: Fever Nose: reports: Reviewed and negative Cardiac: reports: Reviewed and negative Respiratory: reports: Reviewed and negative Skin: reports: Lesions Musculoskeletal: reports: Reviewed and negative Neurologic: reports: Reviewed and negative PD PAST MEDICAL HISTORY - Past Medical History Past Medical History: Yes Cardiovascular: None Respiratory: Sleep apnea Endocrine/Autoimmune: None GI: GERD, Colon polyps GENERATION ENGINEER: Breast cancer : None HEENT: Glaucoma Psych: None Musculoskeletal: Osteoarthritis Derm: None - Past Surgical History Past Surgical History: Yes General: Colonoscopy /GENERATION ENGINEER: Other - Present Medications Home Medications: Ambulatory Orders Medication Instructions Recorded Confirmed Citalopram [CeleXA] 5 mg PO DAILY 03/04/13 01/10/23 Calcium Carbonate/Vitamin D3 1 tab PO DAILY 05/26/14 01/10/23 [Calcium 600 + Vit D Caplet] Multivitamin [Multivitamins] 1 each PO DAILY 05/26/14 01/10/23 Omeprazole 20 mg PO DAILY 05/26/14 01/10/23 metFORMIN [Glucophage] 500 mg PO BID 11/10/21 01/10/23 cephALEXin [Keflex] 500 mg PO Q6H #40 cap 01/10/23 oxyCODONE [Roxicodone] 5 mg PO TID PRN #15 tablet 01/10/23 - Allergies Allergies/Adverse Reactions: Allergies Allergy/AdvReac Type Severity Reaction Status Date / Time droperidol [From Inapsine] AdvReac Intermediate Respiratory Verified 01/10/23 11:04 prochlorperazine edisylate * AdvReac Intermediate Respiratory Verified 01/10/23 11:04 [From Compazine] prochlorperazine maleate * AdvReac Intermediate Respiratory Verified 01/10/23 11:04 [From Compazine] - Social History Does the pt smoke?: No Smoking Status: Never smoker Does the pt drink ETOH?: No Does the pt have substance abuse?: No - Immunizations Immunizations are current?: Yes PD ED PE NORMAL - General General: Alert and oriented X 3, No acute distress, Well developed/nourished - HEENT HEENT: Atraumatic, Moist mucous membranes, Pharynx benign - Neck Neck: Supple, no meningeal sign, No adenopathy - Cardiac Cardiac: RRR, No murmur - Respiratory Respiratory: No respiratory distress, Clear bilaterally - Abdomen Abdomen: Normal bowel sounds, Soft - Derm Derm: Other (Left breast generally erythematous and indurated. At left lower quadrant is a palpable abscess measuring 1 x 2 cm over what appears to be a previous needle biopsy site. quite tender to touch) - Neuro Neuro: Alert and oriented X 3 Eye Opening: Spontaneous Motor: Obeys Commands Verbal: Oriented GCS Score: 15 Results - Vitals Vitals: Vital Signs - 24 hr 01/10/23 11:01 Temperature 36.1 C L Heart Rate 65 Respiratory 16 Rate Blood Pressure 141/72 H O2 Saturation 98 Oxygen O2 Source Room air - Labs Labs: Laboratory Tests 01/10/23 01/10/23 13:02 13:02 WBC 6.0 RBC 4.32 Hgb 13.1 Hct 41.2 MCV 95.4 MCH 30.3 MCHC 31.8 L RDW 13.1 Plt Count 254 MPV 9.4 Neut # (Auto) 4.1 Lymph # (Auto) 1.1 L [place] # (Auto) 0.5 Eos # (Auto) 0.2 Baso # (Auto) 0.0 Absolute Nucleated RBC 0.00 Nucleated RBC % 0.0 Sodium 141 Potassium 4.2 Chloride 106 Carbon Dioxide 26 Anion Gap 9.0 BUN 15 Creatinine 0.6 Estimated GFR (MDRD) 97 Glucose 113 H Calcium 8.8 Total Bilirubin 0.6 AST 21 ALT 21 Alkaline Phosphatase 66 Total Protein 6.8 Albumin 3.4 Globulin 3.4 Albumin/Globulin Ratio 1.0 Lipase 37 PD Medical Decision Making - ED course Complexity details: reviewed results, re-evaluated patient, d/w patient, d/w family, d/w lean consultant (Rakesh) ED course: 77-year-old female who has a history of an inverted left nipple for the last 18 months he has been undergoing evaluation and management of this which has included a needle biopsy several weeks ago presents to the emergency department for evaluation of acute left breast inflammation redness and abscess formation around the biopsy site. Several weeks ago she did complete a short course of antibiotics for what was suspected to be a superficial mastitis near the site without abscess formation. Here in the emergency department she has a largely tender erythematous and indurated left breast with a 2 x 1 cm abscess that appears to be overlying the biopsy site. I did obtain CBC and electrolytes and per my interpretation no acute worrisome findings. Patient is afebrile here without worrisome vital sign abnormality. I had initially ordered a breast ultrasound but also briefly discussed the case with Dr.'s Cameron Who graciously agreed to the come to the bedside. At the bedside he did do a biopsy as well as incision and drainage. He reports to me that the wound was packed with a small amount of gauze which she is advised the family to remove tomorrow. He is asking the patient to be placed on a 10-day course of cephalexin which I sent to the [facility] in [place]. Limited prescription of oxycodone for analgesia is also being sent. Dr. Amezcua would like to see the patient in follow-up later this week or the patient can also follow-up with Dr. Sow in office. I did discuss the usual emergent return precautions for worsening symptoms. Departure - Departure Disposition: 01 Home, Self Care Clinical Impression: Abscess of left breast Condition: Stable Record reviewed to determine appropriate education?: Yes Follow-Up: Levi Amezcua MD [Provider Admit Priv/Credential] - Prescriptions: cephALEXin [Keflex] 500 mg PO Q6H #40 cap oxyCODONE [Roxicodone] 5 mg PO TID PRN #15 tablet PRN Reason: Pain Comments: Lori you are seen today in the emergency department because you have developed an infection and abscess on your left breast around the site where he had a needle biopsy done. Dr. Cameron Did do a biopsy and incision at the bedside and placed a small amount of packing. The packing should be removed tomorrow and then a simple bandage placed over the site. A warm compress can be applied to the breast for 10 minutes 3 times a day. A prescription for cephalexin antibiotic that you will take 4 times a day has been sent to the [facility] in [place]. A limited prescription of oxycodone for pain has also been sent. It is important you continue to follow-up either with Dr. Sow or Dr. Cameron For reevaluation of this breast abscess within the next week. Return to the ER if you are having worsening symptoms.
[2023-01-10] MEDS ORDERED: oxyCODONE 5 MG TABLET PO STA (12:37)
[2023-01-10 13:09] LABS: BASOPHILS % (AUTO) 0.7 %; EOSINOPHILS # (AUTO) 0.2 10^3/uL (0.0-0.7); EOSINOPHILS % (AUTO) 2.5 %; HCT - HEMATOCRIT 41.2 % (37.0-47.0); HGB - HEMOGLOBIN 13.1 g/dL (12.0-16.0); LYMPHOCYTES # (AUTO) 1.1 10^3/uL (1.5-3.5); LYMPHOCYTES % (AUTO) 18.9 %; MEAN CORPUSCULAR HEMOGLOBIN 30.3 pg (27.0-31.0); MEAN CORPUSCULAR HGB CONC 31.8 g/dL (32.0-36.0); MEAN CORPUSCULAR VOLUME 95.4 fL (81.0-99.0); MEAN PLATELET VOLUME 9.4 fL (7.9-10.8); MONOCYTES # (AUTO) 0.5 10^3/uL (0.0-1.0); MONOCYTES % (AUTO) 8.9 %; NEUTROPHILS # (AUTO) 4.1 10^3/uL (1.5-6.6); NEUTROPHILS % (AUTO) 68.8 %; PLT - PLATELET COUNT 254 10^3/uL (130-450); RED BLOOD COUNT 4.32 10^6/uL (4.20-5.40); RED CELL DISTRIBUTION WIDTH 13.1 % (12.0-15.0)
[2023-01-10 13:20] LABS: ALBUMIN 3.4 g/dL (3.2-5.5); BILIRUBIN,TOTAL 0.6 mg/dL (0.2-1.0); CALCIUM 8.8 mg/dL (8.5-10.3); CREATININE 0.6 mg/dL (0.4-1.0); POTASSIUM 4.2 mmol/L (3.5-5.0); TOTAL PROTEIN 6.8 g/dL (6.7-8.2)
--- NOTE | 2023-01-10 15:25 | OPERATIVE REPORT ---
Operative Report - General Procedure Date: 01/10/23 Planned Procedure: Incision and drainage LEFT breast abscess Pre-Op Diagnosis: LEFT breast abscess Procedure Performed: Incision and drainage of LEFT breast abscess Post Op Diagnosis: LEFT breast abscess - Procedure Note Primary Surgeon: Levi Amezcua MD Anesthesia Technique: Local (10 mL of 2% lidocaine with epinephrine) IV Fluids (mL): 0 Estimated Blood Loss (mL): 1 Drain/Tube Type: Other (Antibiotic impregnated gauze) Indications: LEFT breast abscess Findings: Fluctuant LEFT breast mass which upon incision drained purulent material Complications: None. - Other Other Information/Narrative: After verbal and written consent was obtained regarding the proposed procedure (incision and drainage of left breast abscess) the patient was prepped in usual standard manner. The skin overlying the fluctuant area of the left breast was anesthetized using 2% lidocaine with epinephrine. Once the skin was insensate an 8 mm punch biopsy was used to incise the skin with the immediate release of some pus mixed with some blood. The skin was not sent for pathologic evaluation. The pus was then cultured and is to be sent for aerobic and anaerobic culture. The wound was then probed using a cotton-tipped applicator and was noted to have a somewhat serpiginous path but to be at least 2-1/2 to 3 inches deep. The wound was then packed with antibiotic soaked gauze. The wound was then dressed with a Tegaderm and folded 4 x 4. The patient tolerated the procedure quite well. Please note that the patient's was present in the room for the entirety of the discussion, consent, and procedure. I have instructed the patient to leave the dressing in place this evening but to remove the dressing tomorrow morning and remove the gauze. She is to get in the shower and let soap and water run over the wound. I explained to her that she should expect and anticipate additional drainage. The patient instructed me that she has a follow-up this Monday with Dr. Mona Sow for consideration of a left excisional breast biopsy. The patient asked me whether or not Dr. Sow would be perform this procedure and I explained that I would leave that up to Dr. Sow (I stated that theoretically a biopsy be could be done through the open wound but there was a possibility that all that would be seen would be reactive tissue). I asked her to contact me with any surgical questions or concerns in the meantime and she stated that she would. I also explained that she can certainly check through the emergency room if there is any additional questions and or concerns. Additionally, Keflex 500 mg 4 times a day is to be prescribed for 10 days to support the surrounding tissues and help resolve this infection. CPT 93482
--- NOTE | 2023-01-10 16:07 | CONSULTATION NOTE ---
Referring Provider Name of Referring Provider:: Katiehieu Arndt Consult Date: 01/10/23 Chief Complaint - Chief Complaint Chief Complaint: LEFT breast abscess History of Present Illness - Admitted From Admitted From:: In [facility]'s emergency department bed 10 - History Obtained From Records Reviewed: Yes History obtained from: Physician, chart, patient Exam Limitations: None. - History of Present Illness HPI Comment/Other: This very pleasant 77-year-old female was evaluated in bed 10 of [facility]'s emergency department at the request of Megan Arndt for a left breast abscess. The patient has a remote history of breast cancer and has been a patient of Dr. Naman carvalho for years. Dr. Contreras left the patient trans ferred her care to Dr. Mona Sow. I am summarizing the story somewhat but the patient has had the inverted nipple in the same breast that had the breast cancer which has prompted concern. As result the patient had numerous mammograms and ultrasounds culminating in a radiographically directed needle biopsy which per the patient was benign. Despite this the patient states that the radiologist recommended an excisional biopsy for which the patient was seeing Dr. Sow. Following the needle biopsy and the patient and what appeared to be an infection for which Dr. Sow placed her on antibiotics (Bactrim). The antibiotics were completed and in the past 24 to 48 hours the area in her left breast got progressively swollen and started pointing. With increased pain the patient came to the emergency department and I was called. History - Past Medical History Cardiovascular: reports: None Respiratory: reports: Sleep apnea Endocrine/Autoimmune: reports: None GI: reports: GERD, Colon polyps EXPERIENCE SPECIALIST: reports: Breast cancer : reports: None HEENT: reports: Glaucoma Psych: reports: None Musculoskeletal: reports: Osteoarthritis Derm: reports: None MRSA Hx?: No - Past Surgical History General: reports: Colonoscopy /EXPERIENCE SPECIALIST: reports: Other Meds/Allgy - Home Medications Home Medications: Ambulatory Orders Medication Instructions Recorded Confirmed Citalopram [CeleXA] 5 mg PO DAILY 03/04/13 01/10/23 Calcium Carbonate/Vitamin D3 1 tab PO DAILY 05/26/14 01/10/23 [Calcium 600 + Vit D Caplet] Multivitamin [Multivitamins] 1 each PO DAILY 05/26/14 01/10/23 Omeprazole 20 mg PO DAILY 05/26/14 01/10/23 metFORMIN [Glucophage] 500 mg PO BID 11/10/21 01/10/23 cephALEXin [Keflex] 500 mg PO Q6H #40 cap 01/10/23 oxyCODONE [Roxicodone] 5 mg PO TID PRN #15 tablet 01/10/23 - Allergies Allergies/Adverse Reactions: Allergies Allergy/AdvReac Type Severity Reaction Status Date / Time droperidol [From Inapsine] AdvReac Intermediate Respiratory Verified 01/10/23 11:04 prochlorperazine edisylate * AdvReac Intermediate Respiratory Verified 01/10/23 11:04 [From Compazine] prochlorperazine maleate * AdvReac Intermediate Respiratory Verified 01/10/23 11:04 [From Compazine] Review of Systems - Constitutional Constitutional: denies: Fatigue, Chills - Eyes Eyes: denies: Pain - Ears, Nose & Throat Ears, Nose & Throat: denies: Ear pain - Cardiovascular Cariovascular: denies: Irregular heart rate, Palpitations, Chest pain - Respiratory Respiratory: denies: Cough, Sputum production - Gastrointestinal Gastrointestinal: denies: Abdominal pain - Genitourinary Genitourinary: denies: Dysuria - Musculoskeletal Musculoskeletal: denies: Muscle pain - Integumentary Integumentary: reports: Other (Erythema and fluctuance at left breast). denies: Rash - Neurological Neurological: denies: General weakness, Focal weakness - Psychiatric Psychiatric: denies: Depression, Anxiety Exam - Vital Signs Reviewed Vital Signs: Yes Vital Signs: Vital Signs x48h Temp Pulse Resp BP Pulse Ox 01/10/23 11:01 36.1 C L 65 16 141/72 H 98 - Physical Exam General Appearance: positive: No acute distress, Alert Eyes Bilateral: positive: No lid inflammation, Conjunctivae nml, No scleral icterus Abdomen: positive: Non-tender Skin: positive: Other (A very targeted examination of the left breast showed a approximately 6 cm in diameter area of erythema with the central portion of fl uctuance with some darker skin and the middle that was "pointing".) Neurologic/Psychiatric: positive: Oriented x3, Motor nml, Sensation nml, Mood/affect nml Conclusion/Plan - Lab Results Lab results reviewed: Yes Fish Bones: 01/10/23 13:02 01/10/23 13:02 - Other Other Results/Comments: Ultrasound had been called to evaluate this patient's left breast but I told him that they were not needed and the diagnosis was self-evident. After obtaining verbal and written consent, this abscess was incised and drained. Cultures were obtained. The wound was packed with antibiotic soaked gauze. Instructions were given to the patient. The patient is to be on 10 days of Keflex 500 mg 4 times a day. She has a follow-up this Monday with Dr. Sow but I explained that if Dr. Sow cannot see her or if she has any problems in the interim that she can certainly see me. I asked her to contact me with any surgical questions and or concerns. The patient was instructed to remove the dressing tomorrow have her remove the packing and shower with allowing soap and water to go through the wound. This should be a daily process. The wound should be dressed strictly to protect her clothes and bedding. CPT 12532
== END 2023-01-10 15:43 | disposition home or self-care (01) ==
LOC: ED 10:53
DX: N61.1 Abscess of the breast and nipple (principal); Z79.899 Other long term (current) drug therapy; Z79.84 Long term (current) use of oral hypoglycemic drugs
CPT/HCPCS: 10180; 36415; 80053; 83690; 85025; 87070; 87181; 87205; 99284; A9270

== ENCOUNTER 2023-01-30 07:01 | Day surgery (SDC) | payer MEDICARE ==
[2023-01-30] MEDS ORDERED: LACTATED RINGERS 1,000 ML IV ONE ×2 (07:06→12:04)
[2023-01-30] MEDS ORDERED: ceFAZolin 2 GM VIAL ONE (07:40)
--- NOTE | 2023-01-30 08:07 | ANESTHESIA ---
Pre-Anesthesia VS, & Labs - Diagnosis hx breast ca, abnormal breast imaging - Procedure excisional breast biopsy Vital Signs: Temp Pulse Resp BP Pulse Ox O2 Flow Rate 36.0 C L 65 16 141/88 H 95 0 01/30/23 07:18 01/30/23 07:18 01/30/23 07:18 01/30/23 07:18 01/30/23 07:18 01/30/23 07:18 Height: 5 ft 4 in Weight (kg): 94 kg Body Mass Index: 35.5 BMI Classification: Obese - NPO >8 hours - Is Patient ?: No - Lab Results Current Lab Results: Laboratory Tests 01/30/23 07:20: POC Whole Bld Glucose 102 H Lab results reviewed: Yes Home Medications and Allergies Citalopram [CeleXA] 20 mg PO DAILY 03/04/13 Calcium Carbonate/Vitamin D3 [Calcium 600 + Vit D Caplet] 1 tab PO DAILY 05/26/14 Multivitamin [Multivitamins] 1 each PO DAILY 05/26/14 Omeprazole 20 mg PO DAILY 05/26/14 metFORMIN [Glucophage] 500 mg PO BID 11/10/21 Allergies/Adverse Reactions: Allergies Allergy/AdvReac Type Severity Reaction Status Date / Time droperidol [From Inapsine] AdvReac Intermediate Respiratory Verified 01/10/23 11:04 prochlorperazine edisylate * AdvReac Intermediate Respiratory Verified 01/10/23 11:04 [From Compazine] prochlorperazine maleate * AdvReac Intermediate Respiratory Verified 01/10/23 11:04 [From Compazine] Anes History & Medical History - Anesthetic History Anesthesia Complications: reports: No previous complications Family history of Anesthesia Complications: Denies Family history of Malignant Hyperthermia: Denies - Medical History Cardiovascular: reports: None Pulmonary: reports: Sleep apnea, CPAP use Gastrointestinal: reports: GERD, Colon polyps Urinary: reports: None Musculoskeletal: reports: Osteoarthritis Endocrine/Autoimmune: reports: Other Skin: reports: Eczema Smoking Status: Never smoker History of Cancer?: Yes (L breast) - Surgical History General: reports: Colonoscopy Eyes Ears Nose Throat (EENT): reports: Cataracts Gynecologic: reports: Other Exam General: Alert, Oriented x3, Cooperative Dental: WNL Mouth Openin Fingerbreadth Neck Mobility: Normal Mallampati classification: II Thyromental Distance: 4-6 cm Respiratory: Lungs clear, Normal breath sounds, No respiratory distress Cardiovascular: Regular rate Neurological: Normal speech Mental/Cognitive Status: Alert/Oriented X3, Normal for patient Cognitive Status: Within normal limits Plan Anesthesia Type: General Consent for Procedure(s) Verified and Reviewed: Yes Code Status: Attempt Resuscitation ASA classification: 3-Severe systemic disease Is this case an emergency?: No
[2023-01-30] MEDS ORDERED: ePHEDrine 50 MG/ML VIAL IVP PRN (08:08)
[2023-01-30] MEDS ORDERED: METOCLOPRAMIDE 10 MG/2 ML VIAL IVP PRN (08:08)
[2023-01-30] MEDS ORDERED: HYDROmorphone 0.5 MG/0.5 ML SYRINGE IVP PRN ×2 (08:08→12:12)
[2023-01-30] MEDS ORDERED: fentaNYL 100 MCG/2 ML VIAL IVP PRN (08:08)
[2023-01-30] MEDS ORDERED: ONDANSETRON 4 MG/2 ML VIAL IVP PRN (08:08)
[2023-01-30] MEDS ORDERED: NALOXONE 0.4 MG/ML VIAL IVP PRN (08:08)
[2023-01-30] MEDS ORDERED: ATROPINE ABBOJECT 1 MG/10 ML SYRINGE IVP PRN (08:08)
[2023-01-30] MEDS ORDERED: MORPHINE 2 MG/ML CARPUJECT IVP PRN (08:08)
[2023-01-30] MEDS ORDERED: LIDOCAINE-MPF 1% 5 ML VIAL ONE (08:15)
[2023-01-30] MEDS ORDERED: MIDAZOLAM 2 MG/2 ML VIAL ONE (08:52)
[2023-01-30] MEDS ORDERED: fentaNYL 100 MCG/2 ML VIAL ONE (08:53)
[2023-01-30] MEDS ORDERED: LIDOCAINE-PF 2% 10 ML AMP SUBQ ONE (08:53)
[2023-01-30] MEDS ORDERED: PROPOFOL 200 MG/20 ML VIAL IVP ONE (08:54)
[2023-01-30] MEDS ORDERED: LACTATED RINGERS 1,000 ML IV SCH (09:00)
[2023-01-30] MEDS ORDERED: LIDOCAINE 1%-EPI 1:100000 20 ML MDV ONE (09:03)
[2023-01-30] MEDS ORDERED: BUPIVACAINE 0.25% PF 30 ML VIAL ONE (09:03)
[2023-01-30] MEDS ORDERED: LIDOCAINE-MPF 1% 5 ML VIAL TD ONE (09:56)
[2023-01-30] MEDS ORDERED: ONDANSETRON 4 MG/2 ML VIAL ONE (10:23)
[2023-01-30] MEDS ORDERED: DEXAMETHASONE 4 MG/ML VIAL ONE (10:23)
[2023-01-30] MEDS ORDERED: ePHEDrine 50 MG/ML VIAL IVP ONE (10:25)
[2023-01-30] MEDS ORDERED: PHENYLEPHRINE 10 MG/ML VIAL ONE (10:32)
[2023-01-30] MEDS ORDERED: GLYCOPYRROLATE 1 MG/5 ML VIAL ONE (10:36)
[2023-01-30] MEDS ORDERED: LIDOCAINE 1%-EPI 1:100000 20 ML MDV SUBQ ONE ×2 (10:54)
[2023-01-30] MEDS ORDERED: BUPIVACAINE 0.25% PF 30 ML VIAL SUBQ ONE ×2 (10:55)
[2023-01-30] MEDS ORDERED: oxyCODONE 5 MG TABLET PO PRN (12:12)
--- NOTE | 2023-01-30 12:27 | OPERATIVE REPORT ---
Operative Report - General Procedure Date: 01/30/23 Planned Procedure: excisional biopsy of left breast Pre-Op Diagnosis: abnormal imaging, discordant studies, chronic left breast abscess, h/o IDC Procedure Performed: excisional biopsy of left breast Post Op Diagnosis: abnormal imaging, discordant studies, chronic left breast abscess, h/o IDC - Procedure Note Primary Surgeon: Dr. Mona Sow Anesthesia Provider: John Shelley CRNA Anesthesia Technique: General LMA, Local Pathology: left breast excisional biopsy, short superior, longer lateral, double anterior Estimated Blood Loss (mL): 20 Drain/Tube Type: Panfilo Grover drain (left breast) Indications: This is a very pleasant 77-year-old female with a remote history of invasive ductal carcinoma the left breast. Approximately 2 years ago, the patient began having a pulling sensation in her left breast. Mammogram and ultrasound did not demonstrate any significant findings, but she did have an abnormal area identified on her MRI. For persistently discordant studies, the patient underwent a needle biopsy approximately 2-1/2 months ago. At that time, purulent fluid was recovered, and since then the patient has had a recurrent abscess which required an I&D. Her infection has cleared with antibiotics. Today, she presents for excisional biopsy of the area for definitive diagnosis. She has been seen and evaluated in the clinic several times. We have discussed the risks, benefits, and alternatives of excisional biopsy including bleeding, infection, damage to surrounding structures, and the need for further surgeries or procedures. We also discussed the possibility that the patient may have a significant finding that would require further surgery. The patient voiced understanding, her questions were answered, and she wished to proceed. A co nsent was signed by the patient in clinic. Findings: 1. significant induration, no purulence 2. clip present in specimen Complications: none - Other Other Information/Narrative: The patient was taken to the operating room and placed in the supine position. Preop antibiotics were given. ERAS medications were given. The patient was prepped and draped in the usual sterile fashion. A preop surgical timeout was performed. Attention was turned to the patient's left breast. An incision was made which incorporated the wire, following the patient's skin folds, at the 5 o'clock position, N + 4. Skin flaps were raised superiorly and inferiorly to the incision. The dissection was carried down to the thick part of the wire using electrocautery. At this point, serrated scissors were used to perform a lumpectomy staying at least 1 cm away from the wire in all dimensions, and removing the indurated tissue. The lumpectomy specimen was removed and oriented with suture on the back table. The specimen was sent to mammography and the biopsy clip was confirmed to be within the specimen.The edges of the lumpectomy cavity were inspected and there were no palpable abnormalities. Hemostasis was confirmed. The lumpectomy cavity was copiously irrigated with 2 L warm normal saline. A 7 [place] AMPARO drain was placed in the lumpectomy cavity due to its size. This was sewn into place using a 3-0 Vicryl suture. The deep dermal tissues were closed with 3-0 Vicryl in an interrupted fashion. The skin was closed with 4-0 Monocryl in a running subcuticular fashion. The patient tolerated the procedure well. There were no complications.
--- NOTE | 2023-01-30 12:52 | ANESTHESIA POST OP EVALUATION ---
Anesthesia Post Eval - Post Anesthesia Eval Vitals: Last Vital Signs Temp 36.9 C 01/30/23 12:37 Pulse 80 01/30/23 12:37 Resp 12 01/30/23 12:37 BP 134/72 H 01/30/23 12:37 Pulse Ox 94 01/30/23 12:37 O2 Flow Rate 0 01/30/23 07:18 CV Function Including HR & BP: Stable Pain Control: Satisfactory Nausea & Vomiting: Negative Mental Status: Baseline Respiratory Status: Airway Patent Hydration Status: Satisfactory Anesthesia Complications: None
[2023-01-30 13:44] VITALS: BP 113/89
--- NOTE | 2023-01-31 12:54 | Mammography Report ---
UNILATERAL LEFT DIGITAL DIAGNOSTIC MAMMOGRAM POST-PROCEDURE IMAGING FOR MARKER PLACEMENT: 01/30/2023 CLINICAL: Pre op wire localization with ultrasound. Comparison is made to exams dated: 12/08/2022 mammogram, 11/15/2022 breast [facility] - [facility], 09/20/2022 mammogram - [facility], and 11/15/2021 mammogram - [facility]. There are scattered areas of fibroglandular density in the left breast (category b / 25%-50% glandula r tissue). There is a marker clip with adjacent wire tip in the appropriate position in the left breast at 3 o'c lock middle depth 2 cm from the nipple. IMPRESSION: POST PROCEDURE MAMMOGRAM FOR MARKER PLACEMENT There is a marker clip with adjacent wire tip in the appropriate position in the left breast at 3 o'c lock middle depth 2 cm from the nipple, corresponding to prior biopsy. This exam was interpreted at Station ID: [id number]. NOTE: For mammograms, a report in lay terms will be sent to the patient. Approximately 15% of breast malignancies will not be visualized mammographically. In the management of a palpable breast mass, a negative mammogram must not discourage biopsy of a clinically suspicious lesion. Electronically Signed By: Michael Wing M.D. lc/:01/30/2023 12:02:58 ACR BI-RADS Category Post-procedure mammogram for marker placement PARENCHYMAL PATTERN: (A) - The breast(s) demonstrate(s) scattered fibroglandular densities. BI-RADS CATEGORY: () - Unspecified - other recall n/a LATERALITY: (B)
--- NOTE | 2023-01-31 12:54 | Mammography Report ---
SPECIMEN: 01/30/2023 CLINICAL: Left breast specimen. Correlation is made to exams dated: 01/30/2023 mammogram - [facility], 12/08/2022 anastaico mogram, 11/15/2022 breast MRI - [facility], and 09/20/2022 mammogram - [facility]. The specimen contains the biopsy clip and distal wire hooked end and some adjacent calcifications. IMPRESSION: SPECIMEN The specimen contains the biopsy clip and distal wire hooked end and some adjacent calcifications. This exam was interpreted at Station ID: [id number]. Michael Wing M.D. lc/:01/30/2023 12:04:08 BI-RADS CATEGORY: () - Unspecified - other recall n/a LATERALITY: (B)
--- NOTE | 2023-02-07 12:43 | Ultrasound Report ---
NEEDLE LOCALIZATION LEFT BREAST: 01/30/2023 CLINICAL: Pre op wire localization with ultrasound. Correlation is made to exams dated: 12/08/2022 mammogram, 12/08/2022 ultrasound biopsy, 11/29/2022 ultra sound, 11/15/2022 breast MRI - [facility], 09/20/2022 ultrasound, and 09/20/2022 mammogram - [facility]. A needle localization was performed for the 2 cm x 1.8 cm x 1.9 cm abnormality located in the left br east at 3 o'clock middle depth 2 cm from the nipple. The skin was prepped in the usual manner. A ne edle was inserted into the targeted area. IMPRESSION: NEEDLE LOCALIZATION Needle localization for the 2 cm x 1.8 cm x 1.9 cm abnormality in the left breast at 3 o'clock middle depth 2 cm from the nipple was performed. This exam was interpreted at Station ID: [id number]. Michael Wing M.D. lc/:02/07/2023 11:45:15 BI-RADS CATEGORY: () - Unspecified - other recall n/a LATERALITY: (B)
== END 2023-01-30 07:02 | disposition home or self-care (01) ==
LOC: SDS 07:01
PROVIDERS: ATTEND Surgery
PROC: 0HBU0ZX Excision of Left Breast, Open Approach, Diagnostic (ICD-10-PCS; principal; 2023-01-30 09:15)
DX: N61.1 Abscess of the breast and nipple (principal); R92.8 Other abnormal and inconclusive findings on diagnostic imaging of breast; Z85.3 Personal history of malignant neoplasm of breast; E66.9 Obesity, unspecified; Z68.35 Body mass index [BMI] 35.0-35.9, adult
CPT/HCPCS: 19125; 19285; 76098; 77065; J7120

== ENCOUNTER 2023-05-17 10:20 | Outpatient (CLI) | payer MEDICARE ==
--- NOTE | 2023-05-17 11:12 | Sleep Patient Instructions ---
Sleep Center Visit Summary - Patient Visit Information Reason for Visit: Initial consultation for PAP therapy - Patient Instructions Additional Instructions: You were here for follow up of CPAP therapy. You will be continued on CPAP therapy with pressure at 11-15 cmH2O. We are updating your CPAP machine and supplies with your CPAP suppliers. Please call us to make followup compliance visit once you get your machine. You should follow up with sleep care one month after you obtain your new device. You may contact us sooner for any questions or concerns. - Clinic Information Contact: [facility] [address] [place] [address] [email or web address] T: [phone]
--- NOTE | 2023-05-17 11:17 | SLEEP CARE CONSULTATION ---
Information from patient questionnaire entered by Alana Akbar. I have reviewed and concur with the information entered by Alana Akbar. This document represents the service I personally performed and the decisions made by me, Laya Myles ARNP. History of Present Illness Service Date and Time: 05/17/2023 1020 Reason for Visit: New patient, Previously diagnosed sleep apnea, sleep apnea on CPAP therapy Chief Complaint: reports: Snoring, Observed pauses in breathing, Frequent awakenings at night, Other (UPDATE SUPPLIES) Date of Onset: 17YRS Usual bedtime: 9PM Time it takes to fall asleep: VARIES Snores at night: Yes Observed to quit breathing while asleep: Yes Sleeps alone due to snoring: No Number of times waking at night: 3-4 Reasons for waking at night: reports: Other (UNKNOWN) Toss, Turn, or Twitch while sleeping: Yes Recalls having dreams: Yes Usually gets out of bed at: 6-7AM Feels refreshed in the morning: Yes Morning headache: No Sleepy or fatigued during the day: Yes Ever fallen asleep while driving: No Takes day naps: Yes Dreams during day naps: No Prior sleep studies: Yes Year and Where: 2014 [facility] Additional HPI information: MAKENZIE CLAROS was previously diagnosed to have severe, AHI 53, obstructive sleep apnea-hypopnea syndrome as documented in a sleep study through [facility] on 03/06/2015 and comes in today to establish care for CPAP therapy. - Parasomnia Symptoms Ever been unable to move upon waking from sleep: No Walks in sleep: No Talks in sleep: No Ever acted out dreams in sleep: No Ever felt weak in the knees when startled or emotional: No Bothered by creepy, crawly, restless sensations in legs: No Problems with memory or concentration: No CPAP Compliance Data - Data Reviewed with Patient Average duration of nightly device use: 9 hours 45 minutes Compliance rate %: 100 (180/180 days used) Current pressure setting (cmH2O): 11-15 Average residual AHI: 3 Central apnea: 0.6 Obstructive apnea: 1.6 Hypopnea: 0.8 Average large leak: 14 mins 32 secs Compliance data discussion: She has a REMstar Auto System 60 series. She gets her supplies from [employer]. She is using a nasal cushion mask since her other mask broke but prefers a nasal pillows mask, extra small cushion. Subjective Patient concerns: reports: air blowing in eyes, mask leak noise. denies: aerophagia, mask discomfort, condensation in mask/hose, nasal congestion, dry mouth, nose, throat, epistaxis Observed to snore while using device: No Current pressure setting perceived as: comfortable On therapy, patient: reports: sleeping better, awakening more refreshed, being more awake and alert during the day, more rested overall. denies: drowsiness while driving Initial [place] Sleepiness Scale score: 2 (04/25/23) Past Medical History Past Medical History: reports: Arthritis, GERD, Other (pre-diabetes) Social History The patient's occupation is a RETIRED. Patient is and lives in [place]. Have you smoked in the past 12 months: No Cigarettes per day (20/pack): 10 Years of smokin Quit date: YRS Smoking Pack Years: 12.5 Alcohol use: No Caffeine use: Yes Caffeine amount and frequency: 3 CUPS DAILY Family History Family history of sleep disordered breathing: Yes Family Hx Sleep Apnea: Mother: Snoring, Father: Snoring Allergies and Home Medications Known drug allergies: Yes ( LISTED) Drug allergies reviewed: Yes Home medication list reviewed: Yes Allergy and home medication list: Allergies droperidol [From Inapsine] Adverse Reaction (Intermediate, Verified 05/16/23 13:42) Respiratory makes her jittery prochlorperazine edisylate * [From Compazine] Adverse Reaction (Intermediate, Verified 05/16/23 13:42) Respiratory Makes her jittery prochlorperazine maleate * [From Compazine] Adverse Reaction (Intermediate, Verified 05/16/23 13:42) Respiratory Makes her jittery Home Medications Medication Instructions Recorded Confirmed Last Taken Type Citalopram [CeleXA] 20 mg PO DAILY 03/04/13 05/17/23 01/29/23 History Calcium Carbonate/Vitamin D3 1 tab PO DAILY 05/26/14 05/17/23 01/29/23 History [Calcium 600 + Vit D Caplet] Multivitamin [Multivitamins] 1 each PO DAILY 05/26/14 05/17/23 01/29/23 History Omeprazole 20 mg PO DAILY 05/26/14 05/17/2301/29/23 History metFORMIN [Glucophage] 500 mg PO BID 11/10/21 05/17/23 01/29/23 History Review of Systems Weight gain over past 5 years: 30 Cardiovascular: denies: high blood pressure Gastrointestinal: reports: heartburn, diarrhea Neurological: denies: headaches Psychiatric: denies: anxiety, depression Ear/Nose/Throat: reports: wisdom teeth removed. denies: tonsillectomy Endocrine: reports: sluggishness Musculoskeletal: reports: joint pain, mobility problems Immunologic: reports: rash, itching Physical Exam Vital signs obtained and entered by: ALANA Cruz MA Blood Pressure: 136/68 (RIGHT ARM) Cuff size: regular Heart Rate: 69 O2 Saturation: 98 Height: 5 ft 4.5 in Weight: 213 lb 8.96 oz Body Mass Index: 36.1 BMI Classification: Obese Neck circumference: 16 Heart: regular rate and rhythm Lungs: clear bilaterally Impression and Plan 1. Obstructive Sleep Apnea-Hypopnea Syndrome, severe, with good treatment compliance and good apnea control. On CPAP therapy, the patient has better sleep quality and is more rested overall. She has a REMstar CPAP that she got about 8 years ago. The patients CPAP is over 5 years old and of reasonable use. Thus, the CPAP will be updated. A DWO prescription will be made. Compliance guidelines for new device and follow up discussed. Patient's apnea severity and rationale for treatment to reduce apnea, improve sleep quality and reduce cardiovascular and cerebrovascular events was reviewed. I also reviewed the benefit of consistent device use of CPAP for gastric reflux. 2. Obesity, unspecified. Currently patients BMI is 36.1. Obesity increases the risk of apnea, CPAP pressure requirements and overall health risks especially cardiovascular and diabetes. Thus patient is advised to lose weight. * Continue auto CPAP pressure at 11-15 cmH2O * Update machine * Update supplies * Notify me if snoring with mask or feeling that the pressure is too much or too little * Attempt to lose weight * Call this office if any problems using CPAP * Return for follow up one month after obtaining new device, or sooner if concerns arise Counseling Topics: Spare mask, Weight loss health impact Prescriptions: Auto CPAP, Device supplies Visit Type: In Office Time Spent with Patient (minutes): 35 Provider Statement: I spent 100% of the Face to Face Visit with the patient with greater than 50% spent counseling the patient and coordination of care.
[2023-05-17 11:23] VITALS: BP 136/68; O2SAT 98
== END 2023-05-17 10:21 | disposition home or self-care (01) ==
LOC: SC 10:20
PROVIDERS: ATTEND Nurse Practitioner Family
DX: G47.33 Obstructive sleep apnea (adult) (pediatric) (principal); E66.9 Obesity, unspecified; Z68.36 Body mass index [BMI] 36.0-36.9, adult
CPT/HCPCS: 99203; G0463; 99212

== ENCOUNTER 2023-05-26 14:21 | Outpatient (CLI) | payer MEDICARE ==
--- NOTE | 2023-05-26 16:41 | DEXA Report ---
PROCEDURE: Dexa Spine and/or Hip INDICATIONS: OSTEOPOROSIS TECHNIQUE: Dual energy x-ray absorptiometry (DXA) was performed on a [employer] System. Regions measur ed are the AP Spine, femoral neck, and if needed forearm. COMPARISON: None FINDINGS: Lumbar Spine: Bone Mineral Density 0.94 g/cm/cm,T score -2.0. Osteopenia Left Femoral Neck: Bone Mineral Density 0.78 g/cm/cm, T score -1.8; osteopenia Impression: By WHO criteria, this patient has osteopenia of the lumbar spine and left hip. Patients with diagnosis of osteoporosis or osteopenia should have regular bone mineral density assess ment. For those eligible for Medicare, routine testing is allowed once every 2 years. Testing frequ ency can be increased for patients who have rapidly progressing disease or for those who are receivin g medical therapy to restore bone mass. Reviewed by: Luzmaria Cotter MD on 05/26/2023 4:40 PM PDT Approved by: Luzmaria Cotter MD on 05/26/2023 4:40 PM PDT Station ID: [id number]
== END 2023-05-26 14:22 | disposition home or self-care (01) ==
LOC: DI 14:21
PROVIDERS: ATTEND Registered Nurse
DX: M85.89 Other specified disorders of bone density and structure, multiple sites (principal)

== ENCOUNTER 2023-08-03 13:49 | Outpatient (CLI) | payer MEDICARE ==
--- NOTE | 2023-08-03 14:11 | Sleep Patient Instructions ---
Sleep Center Visit Summary - Patient Visit Information Reason for Visit: First compliance on new device - Patient Instructions Additional Instructions: You were here for follow up of CPAP therapy. You will be continued on CPAP therapy with pressure at 11-15 cmH2O. You should follow up with sleep care in 12 months. You may contact us sooner for any questions or concerns. - Clinic Information Contact: [facility] [address] [place] [address] [email or web address] T: [phone]
--- NOTE | 2023-08-03 14:14 | SLEEP CARE CONSULTATION ---
Information from patient questionnaire entered by Alana Akbar. I have reviewed and concur with the information entered by Alana Akbar. This document represents the service I personally performed and the decisions made by , Laya Myles ARNP. History of Present Illness Service Date and Time: 08/03/2023 1349 Previous diagnosis: Severe, Obstructive Sleep Apnea-Hypopnea Syndrome AHI: 53 (2014) Reason for follow up: first compliance after device update Equipment type: CPAP (RESMED Airsense 10, s/u 04/2023) Equipment obtained from: [employer] (getting supplies as needed) Mask style: Nasal pillows Backup mask available: Yes Last cushion change: 1 month Prior sleep studies: Yes Year and Where: 2014 [facility] HPI additional information: MAKENZIE CLAROS was diagnosed to have severe, AHI 53, obstructive sleep apnea-hypopnea syndrome and returned today for CPAP therapy first compliance after updating device follow-up. Sleep Study - Results Prior sleep studies: Yes Year and Where: 2014 [facility] CPAP Compliance Data - Data Reviewed with Patient Average duration of nightly device use: 9 HRS 57 MINS Compliance rate %: 90 (05/22/23-06/20/23; days used) Current pressure setting (cmH2O): 11-15 Average residual AHI: 2.5 Central apnea: 0.5 Obstructive apnea: 1.6 Hypopnea: 0.2 Average large leak: 2 L/min Subjective Patient concerns: reports: mask leak noise (occasional). denies: aerophagia, mask discomfort, air blowing in eyes, condensation in mask/hose, nasal congestion, dry mouth, nose, throat, epistaxis Observed to snore while using device: No Current pressure setting perceived as: comfortable On therapy, patient: reports: sleeping better, awakening more refreshed, being more awake and alert during the day, more rested overall. denies: drowsiness while driving Initial [place] Sleepiness Scale score: 2 (04/25/23) Current [place] Sleepiness Scale score: 4 Allergies and Home Medications Known drug allergies: Yes (as listed) Drug allergies reviewed: Yes Home medication list reviewed: Yes (no changes) Allergy and home medication list: Allergies droperidol [From Inapsine] Adverse Reaction (Intermediate, Verified 08/02/23 16:54) Respiratory makes her jittery prochlorperazine edisylate * [From Compazine] Adverse Reaction (Intermediate, Verified 08/02/23 16:54) Respiratory Makes her jittery prochlorperazine maleate * [From Compazine] Adverse Reaction (Intermediate, Gearrd ified 08/02/23 16:54) Respiratory Makes her jittery Review of Systems Review of systems same as previous: Yes (no changes) Physical Exam Vital signs obtained and entered by: Laya Abrams NP Blood Pressure: 117/67 Cuff size: wrist (right) Heart Rate: 65 O2 Saturation: 96 Height: 5 ft 4.5 in Weight: 216 lb 12.8 oz Body Mass Index: 36.6 BMI Classification: Obese Impression and Plan 1. Obstructive Sleep Apnea-Hypopnea Syndrome, severe, with good treatment compliance and good apnea control. On CPAP therapy, the patient has better sleep quality and is more rested overall. Patient has significant improvement of their sleep apnea and is satisfied with current CPAP therapy. Patient denies problems with oral dryness, nasal congestion, epistaxis, skin irritation or aerophagia. We will follow-up with her next year. Patient's apnea severity and rationale for treatment to reduce apnea, improve sleep quality and reduce cardiovascular and cerebrovascular events was reviewed. I also reviewed the benefit of consistent device use of CPAP for pre-diabetes and gastric reflux. 2. Obesity, unspecified. Currently patients BMI is 36.6. Obesity increases the risk of apnea, CPAP pressure requirements and overall health risks especially cardiovascular and diabetes. Thus patient is advised to lose weight. * Continue auto CPAP pressure at 11-15 cmH2O * Notify me if snoring with mask or feeling that the pressure is too much or too little * Attempt to lose weight * Call this office if any problems using CPAP * Return for follow up in 12 months, or sooner if concerns arise Counseling Topics: Spare mask, Weight loss health impact Follow up with Sleep Care in: 1 year Visit Type: In Office Time Spent with Patient (minutes): 15 Provider Statement: I spent 100% of the Face to Face Visit with the patient with greater than 50% spent counseling the patient and coordination of care.
[2023-08-03 14:30] VITALS: BP 117/67; O2SAT 96
== END 2023-08-03 13:50 | disposition home or self-care (01) ==
LOC: SC 13:49
PROVIDERS: ATTEND Nurse Practitioner Family
DX: G47.33 Obstructive sleep apnea (adult) (pediatric) (principal); E66.9 Obesity, unspecified; Z68.36 Body mass index [BMI] 36.0-36.9, adult
CPT/HCPCS: 99212; G0463

== ENCOUNTER 2023-10-24 14:52 | Outpatient (CLI) | payer MEDICARE ==
--- NOTE | 2023-10-24 19:05 | XRAY Report ---
PROCEDURE: Knee 3V BL INDICATIONS: OSTEOARTHRITIS OF KNEE TECHNIQUE: 3 views of the knee(s) were acquired. COMPARISON: Left knee radiographs 10/08/2021. Bilateral knee radiographs 02/21/2019. FINDINGS: Bones: No fractures or dislocations. Mild joint space narrowing most pronounced in the medial ruben rtments. Small osteophytes. No suspicious bony lesions. Soft tissues: Trace knee joint effusion. No suspicious soft tissue calcifications or masses. IMPRESSION: Mild bilateral knee DJD. Reviewed by: Conner Rodriguez MD on 10/24/2023 7:03 PM PST Approved by: Conner Rodriguez MD on 10/24/2023 7:03 PM PST Station ID: [id number]
== END 2023-10-24 14:53 | disposition home or self-care (01) ==
LOC: DI.S 14:52
PROVIDERS: ATTEND Registered Nurse
DX: M17.0 Bilateral primary osteoarthritis of knee (principal)

== ENCOUNTER 2024-01-29 13:51 | Outpatient (CLI) | payer MEDICARE ==
--- NOTE | 2024-02-01 10:22 | Mammography Report ---
BILATERAL DIGITAL SCREENING MAMMOGRAM 3D/2D WITH EXAGGERATED CC: 01/29/2024 CLINICAL: Routine screening. Personal history of left breast cancer. Comparison is made to exams dated: 01/30/2023 localization, 01/30/2023 mammogram - [facility], 12/08/2022 mammogram - [facility], 09/20/2022 mammogram - [facility], and 01/20/2021 mammogram - [facility]. There are scattered areas of fibroglandular density in both breasts (category b / 25%-50% glandular t issue). There is an asymmetry in the left breast posterior depth superior region seen on the mediolateral obl ique view only. No other significant masses, calcifications, or other findings are seen in either breast. Benign calcifications and postsurgical changes are present in the left breast. IMPRESSION: INCOMPLETE: NEEDS ADDITIONAL IMAGING EVALUATION The asymmetry in the left breast is indeterminate. This is more prominent than prior imaging and may represent postsurgical changes. Additional views with possible ultrasound are recommended. This exam was interpreted at Station ID: [id number]. NOTE: For mammograms, a report in lay terms will be sent to the patient. Approximately 15% of breast malignancies will not be visualized mammographically. In the management of a palpable breast mass, a negative mammogram must not discourage biopsy of a clinically suspicious lesion. Electronically Signed By: Michael Wing M.D. lc/:01/31/2024 10:06:05 ACR BI-RADS Category 0: Incomplete 3340F PARENCHYMAL PATTERN: (A) - The breast(s) demonstrate(s) scattered fibroglandular densities. BI-RADS CATEGORY: (0) - 0 Mammo and [place] [id number] Immediate follow-up LATERALITY: (B)
== END 2024-01-29 13:52 | disposition home or self-care (01) ==
LOC: DI.S 13:51
PROVIDERS: ATTEND Registered Nurse
DX: Z12.31 Encounter for screening mammogram for malignant neoplasm of breast (principal); R92.8 Other abnormal and inconclusive findings on diagnostic imaging of breast; R92.323 Mammographic fibroglandular density, bilateral breasts; Z85.3 Personal history of malignant neoplasm of breast

== ENCOUNTER 2024-02-14 12:18 | Outpatient (CLI) | payer MEDICARE ==
--- NOTE | 2024-02-15 10:34 | Mammography Report ---
UNILATERAL LEFT DIGITAL DIAGNOSTIC MAMMOGRAM 3D/2D WITH SPOT COMPRESSION: 02/14/2024 CLINICAL: Patient returns today to evaluate an asymmetry in the left breast. Comparison is made to exams dated: 01/29/2024 mammogram, 01/30/2023 localization, 01/30/2023 mammogram - [facility], 12/08/2022 mammogram, 11/15/2022 breast MRI - [facility], and 09/20/2022 mammogram - [facility]. There are scattered areas of fibroglandular density in the left breast (category b / 25%-50% glandula r tissue). The possible asymmetry in the left breast posterior depth superior region seen on the mediolateral ob lique view only is not seen in additional views. This is less prominent with focal compression and n ot confirmed as a discrete structure in XCC. . No other significant masses or calcifications are seen in the breast. There are post surgical change s, benign calcifications, and fat necrosis, all stable. IMPRESSION: INCOMPLETE: NEEDS ADDITIONAL IMAGING EVALUATION The possible asymmetry in the left breast most likely is overlapping fibrous or scar tissue and is pr obably benign. Ultrasound is recommended for full evaluation of this area. This was performed immedia tely following this exam. This exam was interpreted at Station ID: [id number]. NOTE: For mammograms, a report in lay terms will be sent to the patient. Approximately 15% of breast malignancies will not be visualized mammographically. In the management of a palpable breast mass, a negative mammogram must not discourage biopsy of a clinically suspicious lesion. Electronically Signed By: Cary moreno/:02/14/2024 13:33:38 ACR BI-RADS Category 0: Incomplete 3340F PARENCHYMAL PATTERN: (A) - The breast(s) demonstrate(s) scattered fibroglandular densities. BI-RADS CATEGORY: (0) - 0 Ultrasound [id number] Immediate follow-up LATERALITY: (B)
--- NOTE | 2024-02-15 10:34 | Ultrasound Report ---
LIMITED ULTRASOUND OF LEFT BREAST: 02/14/2024 CLINICAL: Patient returns today to evaluate a focal asymmetry in the left breast. Comparison is made to exams dated: 02/14/2024 mammogram, 01/29/2024 mammogram, 01/30/2023 specimen, 023 localization, 01/30/2023 mammogram - [facility], and 12/08/2022 mammogram - [facility]. Color flow and real-time ultrasound of the left breast 2 o'clock region were performed. Leyva scale images of the real-time examination were reviewed. There is an irregular post-surgical scar/ lumpectomy bed in the left breast at 2 o'clock posterior de pth. This irregular post-surgical scar is hypoechoic. This correlates with mammography findings. C olor flow imaging demonstrates that there is no vascularity present. There are no adjacent masses or suspicious fluid collections to account for the predominanty resolved mammographic asymmetry seen on screening. IMPRESSION: PROBABLY BENIGN The irregular mammographic asymmetry is probably post-surgical and probably benign. No suspicious ul trasound findings. A follow-up left mammogram in 6 months is recommended to demonstrate stability. Findings and recommendations were conveyed to the patient at time of exam. This exam was interpreted at Station ID: [id number]. Electronically Signed By: Cary moreno/:02/14/2024 14:07:13 Ultrasound BI-RADS: 3 Probably benign BI-RADS CATEGORY: (3) - 3 Mammogram [id number] 6 month follow-up LATERALITY: (L)
== END 2024-02-14 12:19 | disposition home or self-care (01) ==
LOC: DI 12:18
PROVIDERS: ATTEND Registered Nurse
DX: R92.8 Other abnormal and inconclusive findings on diagnostic imaging of breast (principal); R92.322 Mammographic fibroglandular density, left breast